=== PATIENT | male | born 1955 | race Caucasian/White ===

== ENCOUNTER 2017-01-09 15:00 | Outpatient (RCR) | payer BC, OTHER ==
[2016-11-13 14:19] VITALS: BP 117/73; PULSE 64; TEMP 98.3
[2016-11-22 16:01] VITALS: BP 108/72; PULSE 83; TEMP 98.5
[2016-11-29 16:11] VITALS: BP 110/58; PULSE 83; TEMP 97.9
[2016-12-06 15:52] VITALS: BP 121/72; PULSE 87; TEMP 97.9
[2016-12-13 16:21] VITALS: BP 106/61; PULSE 90; TEMP 98.1
[2016-12-20] VITALS (7 sets, daily range): BP systolic 108–152; BP diastolic 66–87; PULSE 70–77; TEMP 98.4
[2016-12-26 15:01] VITALS: BP 110/63; PULSE 88; TEMP 97.8
[2017-01-02 14:58] VITALS: BP 108/69; PULSE 72; TEMP 97.8
[~2017-01-09] VITALS: Ht 175.3 cm; Wt 84.0 kg
[~2017-01-09 15:00] MED LIST: ASPIRIN 81M81 MG/TA2 PO; AUGMENTIN 875 M1 TAB PO; BROVANA15 MCG/2 M IH; CALAN80 MG PO; CRESTOR 10MG10 MG PO; DALIRESP500 MCG PO; GLASSIA IV; LEVOTHYROXINE0.05 MG PO; PULMICORT R1 MG/2 ML IH; SINGULAIR 110 MG/TAB PO; SYNTHROID0.112 MG/T PO; THEO-DUR 2200 MG/TAB PO; TOPAMAX 25MG25 M1 PO; TUDORZA IH; VENTOLIN0.09 MG IH; VERAPAMIL240 MG PO; ZOMIG5 MG PO
[2017-01-09 15:15] VITALS: BP 125/73; PULSE 80; TEMP 98.5
== END 2017-02-11 | disposition home or self-care (01) ==
LOC: EUO
DX: E88.01 Alpha-1-antitrypsin deficiency (principal); Z45.2 Encounter for adjustment and management of vascular access device
CPT/HCPCS: J0257; J1644

== ENCOUNTER 2017-04-17 15:30 | Outpatient (RCR) | payer BC | END 2017-06-07 16:01 | disposition home or self-care (01) | LOC: WSPT | DX: M75.81 Other shoulder lesions, right shoulder (principal) ==

== ENCOUNTER → 2017-12-30 | Outpatient (CLI) | payer BC | LOC: COL.RAD 12-25 09:30 | DX: D47.2 Monoclonal gammopathy (principal); M47.812 Spondylosis without myelopathy or radiculopathy, cervical region; M47.816 Spondylosis without myelopathy or radiculopathy, lumbar region ==

== ENCOUNTER → 2019-04-27 | Outpatient (CLI) | payer BC, MEDICARE | LOC: COL.RAD 12:59 | DX: Z13.6 Encounter for screening for cardiovascular disorders (principal); F17.219 Nicotine dependence, cigarettes, with unspecified nicotine-induced disorders ==

== ENCOUNTER 2019-05-08 11:26 | Observation (INO) | payer MEDICARE, BC ==
[~2019-05-08] VITALS: Ht 175.3 cm; Wt 78.6 kg
[2019-05-08 15:10] LABS: BASO # 0.2 (0.0-0.2); BASO % 0.6 % (0.0-2.0); GRAN # 22.8 (1.4-6.5); GRAN % 85.4 % (42.2-75.2); HEMATOCRIT 49.6 % (42.0-52.0); HEMOGLOBIN 16.3 g/dl (13.5-18.0); LYMPH # 1.3 (1.2-3.4); LYMPH % 4.7 % (20.0-51.0); MEAN CELL VOLUME 94 fl (80.0-100.0); MEAN CORPUSCULAR HEMOGLOBIN 31 pg (27.0-31.0); MEAN CORPUSCULAR HGB CONC 33 g/dl (33.0-37.0); MEAN PLATELET VOLUME 11.5 fl (7.4-10.4); MONO # 2.4 (0.1-0.6); MONO % 8.9 % (1.7-9.3); PLATELET COUNT 252 K/mm3 (130-400); RED BLOOD COUNT 5.29 M/mm3 (4.20-5.60); REDCELL DISTRIBUTION WIDTH-CV 13.6 % (11.5-14.5)
[2019-05-08 15:28] LABS: ALBUMIN 3.8 gm/dL (3.5-5.0); BILIRUBIN,TOTAL 0.6 mg/dL (0.0-1.0); C-REACTIVE PROTEIN 3.7 mg/dL (0.0-0.9); CREATININE, serum 0.69 (0.66-1.25); POTASSIUM 4.2 mmol/L (3.4-5.0); TOTAL PROTEIN 6.8 gm/dL (6.4-8.2)
[2019-05-08 15:30] LABS: COLLECTION METHOD CLEAN CATCH
[2019-05-08 15:46] LABS: AMORPHOUS CRYSTAL Present /uL; MUCOUS Present /lpf; PH 5 (5-8); SQUAMOUS EPITHELIAL 0-2 /hpf; URINE APPEARANCE Hazy; URINE BACTERIA None Seen /hpf; URINE BILIRUBIN Positive (NEGATIVE); URINE BLOOD Negative (NEGATIVE); URINE CALCIUM OXALATE CRYSTAL Present /hpf; URINE COLOR Amber; URINE GLUCOSE Negative (NEGATIVE); URINE KETONE 2+ (NEGATIVE); URINE LEUKOCYTE ESTERASE Negative (NEGATIVE); URINE NITRATE Negative (NEGATIVE); URINE PROTEIN(semi-quant) 1+ (NEGATIVE); URINE UROBILINOGEN >=4.0 mg/dL (NEGATIVE)
[2019-05-08] MEDS ORDERED: MOBIC15 MG PO (21:03)
[2019-05-08] MEDS ORDERED: PROAIR HFA0.09 MG/AC IH (21:09)
[2019-05-08] MEDS ORDERED: SPIRIVA RE2.5 MCG/Ac IH (21:10)
[2019-05-08] MEDS ORDERED: LIORESAL 1010 MG/TAB PO (21:10)
[2019-05-08 21:30] VITALS: BP 123/72; PULSE 118; TEMP 100.1
[2019-05-08 23:30] VITALS: BP 113/67; PULSE 132; TEMP 100.7
[2019-05-08 23:46] VITALS: BP 100/61; PULSE 130; TEMP 100.7
[2019-05-09] VITALS (7 sets, daily range): BP systolic 92–115; BP diastolic 46–74; PULSE 108–146; TEMP 97.5–99.8
[2019-05-09] MEDS ORDERED: THEO-24400 MG PO (00:45)
--- NOTE | 2019-05-09 01:36 | NUR ---
Patient arrived to medical floor room 306 from ER at approximately 2054. Denied having pain and discomfort at that time. Alert and oriented x 4, and able to make needs known. A little sleepy, but easily awakened. Peripheral IV to right AC flushed. Site is without redness, warmth, swelling, and pain. LS CTA. On oxygen at 3 L/min via NC, which is baseline per patient. Reports some SOB and dyspnea, but "nothing unusual." Patient does have COPD. Denies SOB at rest. HRR. BSAx4. Denied abdominal pain and discomfort. Stool sample needed, but has not been able to have a bowel movement so far this shift. Patient temperature increased to 100.7, pulse 130s, and BP 100/61. Spoke with EXCELLENCE LEADER. EKG ordered, patient put on telemetry per orders, showing sinus tachycardia. Given APAP for fever around 0030, and Dilaudid for pain around 0115. Voices no questions, needs, or concerns at this time. Bolus NS is running per orders at this time, then will run at 150 ml/hr per orders. Resting in bed with eyes closed at this time. Call light is within reach.
[2019-05-09 02:12] LABS: TSH w REFLEX 1.49 uIU/mL (0.465-4.680)
[2019-05-09 03:03] LABS: THEOPHYLLINE 2.6 ug/mL (10.0-20.0)
--- NOTE | 2019-05-09 05:59 | NUR ---
Patient has been resting in bed with eyes closed most of the night. called and given update on patient during the night. Temp has decreased to 98.8. Denies having chills. Peripheral IV to right AC patent. NS running at 150 ml/hr. Site is without redness, warmth, swelling, and pain. Continues to wear oxygen at 3 L/min via NC. Denies having any worsening SOB or dyspnea compared to baseline for patient. Continues on clear liquid diet. Reports pain to abdomen is currently at a 2. Denies wanting any PRN pain medication at this time. Encouraged to let staff know if he wants any pain medication, and voiced understanding. Denies having any nausea. No vomiting or diarrhea since arriving to medical floor. Stool sample still needed. Voices no questions, needs, or concerns at this time. Resting in bed with call light within reach.
[2019-05-09 07:17] LABS: HEMATOCRIT 46.2 % (42.0-52.0); HEMOGLOBIN 14.9 g/dl (13.5-18.0); MEAN CELL VOLUME 95 fl (80.0-100.0); MEAN CORPUSCULAR HEMOGLOBIN 31 pg (27.0-31.0); MEAN CORPUSCULAR HGB CONC 32 g/dl (33.0-37.0); MEAN PLATELET VOLUME 12.2 fl (7.4-10.4); PLATELET COUNT 214 K/mm3 (130-400); RED BLOOD COUNT 4.87 M/mm3 (4.20-5.60); REDCELL DISTRIBUTION WIDTH-CV 13.8 % (11.5-14.5)
[2019-05-09 07:19] LABS: CALCIUM 7.3 mg/dL (8.4-10.2); CREATININE, serum 0.8 (0.66-1.25); POTASSIUM 4.4 mmol/L (3.4-5.0)
--- NOTE | 2019-05-09 07:25 | NUR ---
Report given to day shift nurse.
--- NOTE | 2019-05-09 11:42 | NUR ---
Plan: Patient plans to return home with Rukhsana Owen as care support . Assess: SW met with patient in room to discuss DC plan. Patient reports that [place] of town. Patient indicated that he uses 02 cc and a nebulizer. Patient reports that he is okay to drive and has no concerns with daily living. Patient shares that he does not have a DPOA but is interested in setting one up. SW gave patient DPOA form and explained, patient indicated he will fill out late with present. Patient reports PCp as Dr. Murali Ornelas and uses [facility] for RX. No additional concerns identified. Action: SW verbalized resources and will check back for DPOA PPW and witness.
[2019-05-09 11:51] LABS: BAND 56 % (0-10); LYMPHOCYTE 19 % (20.0-51.0); METAMYELOCYTE 3 % (0-0); NEUTROPHILS 2 % (42.0-75.2); PLATELET ESTIMATE NORMAL (NORMAL)
--- NOTE | 2019-05-09 16:30 | NUR ---
PT CONTINUES TO HAVE LOOSE STOOLS, PT ASKED THIS NURES ABOUT GETTING ANYTHING TO SLOW IT DOWN SUCH IMMODIUM. THIS NURSE CALLED DR. CHEUNG, DR. CHEUNG STATED THAT HE DIDNT WANT TO HAVE PT STOP UP HIS BOWELS AND THAT LONG HE CONTINUES TO HAVE A LOOSE STOOLS HES AT LEAST POOPING OUT THE INFECTION. VERBALIZED THAT MAYBE LATER IN THE EVENING HE COULD POSSIBLY GET AN IMMODIUM JUST TO SLOW THE BM IF HE CONTINUES TO GO.
--- NOTE | 2019-05-09 20:15 | NUR ---
Patient assessed at this time. Denies having any pain or discomfort. Denies having any nausea, vomiting, or upset stomach. Reports he continues to have diarrhea. NS running at 100 ml/hr to peripheral IV to right AC. Site is without redness, warmth, swelling, and pain. Oxygen on at 3 L/min via NC. Denies having SOB and dyspnea. Heart with regular rhythm, tachycardia 110s-120s. Denies having chest pain, discomfort, palpitations. BS hyperactive x 4. Abdomen round, soft, and non-tender. No edema. Denies having any questions, needs, or concerns. Resting in bed with call light within reach.
--- NOTE | 2019-05-09 22:44 | NUR ---
Telemetry called and notified this nurse that patient's HR was above 130. When going to check on patient, patient was in the bathroom having a bowel movement. After patient returned to bed, patient's HR returned to 110s-120s, but does increase to 130 during exertion. Denies having chest pain and discomfort. Denies having SOB and dyspnea. Voices no questions, needs, or concerns. Resting in bed with eyes closed at this time. Call light is within reach.
--- NOTE | 2019-05-09 23:35 | NUR ---
HR increased to mid 140s when going to the bathroom. BP 92/46. Called to CONCRETE WORKER. Receiving 1 L NS bolus at this time. STAT labs for BMP and Mag were ordered. Patient continues to deny pain and discomfort. Is reporting some SOB and dyspnea related to having to go the the bathroom frequently. HR currently 127. Voices no questions, needs, or concerns at this time. Laying in bed with call light within reach.
[2019-05-10 00:13] LABS: CALCIUM 7.1 mg/dL (8.4-10.2); CREATININE, serum 1.15 (0.66-1.25); MAGNESIUM 2.3 mg/dL (1.6-2.3); POTASSIUM 4.2 mmol/L (3.4-5.0)
[2019-05-10 00:25] VITALS: BP 96/61; PULSE 128
--- NOTE | 2019-05-10 00:30 | NUR ---
BP at this time 96/61, pulse 128. Finished 1 L NS bolus. Lab results back. Called and spoke with CAKE PRESS OPERATOR HELPER. No new orders at this time. Requested to be notified if HR continues to increase in the 140s with frequent loose stools. Patient denies having any questions, needs, or concerns at this time.
[2019-05-10 03:03] VITALS: BP 109/60; PULSE 118; TEMP 100.9
[2019-05-10 06:05] VITALS: BP 94/52; PULSE 124; TEMP 98.2
[2019-05-10 06:27] LABS: HEMOGLOBIN 13.8 g/dl (13.5-18.0); MEAN CELL VOLUME 93 fl (80.0-100.0); MEAN CORPUSCULAR HEMOGLOBIN 31 pg (27.0-31.0); MEAN CORPUSCULAR HGB CONC 33 g/dl (33.0-37.0); MEAN PLATELET VOLUME 12.3 fl (7.4-10.4); PLATELET COUNT 162 K/mm3 (130-400); REDCELL DISTRIBUTION WIDTH-CV 13.8 % (11.5-14.5)
[2019-05-10 06:37] LABS: ALBUMIN 2.5 gm/dL (3.5-5.0); BILIRUBIN,TOTAL 0.3 mg/dL (0.0-1.0); CALCIUM 6.8 mg/dL (8.4-10.2); CREATININE, serum 0.97 (0.66-1.25); MAGNESIUM 2.5 mg/dL (1.6-2.3); POTASSIUM 3.7 mmol/L (3.4-5.0); TOTAL PROTEIN 5.1 gm/dL (6.4-8.2)
--- NOTE | 2019-05-10 07:40 | NUR ---
Patient had a fall in room at approximately 0605. Stated that he was trying to go to the bathroom when he tripped on oxygen tubing and IV tubing and fell. Got self back up and put self in bed before calling for assistance. Upon entering room, patient had blood on face and hands. Cleansed. Called and notified JACK MACHINE OPERATOR about fall and laceration to right forehead, measuring approximately [id number] (LWD). Skin tear to left third digit measuring 1cmX0.8cm (LW). Gauze and wrap placed on finger after cleansed. Ice held to forehead. VS: 98.2 20 94/52 93% on oxygen at 3 L/min via NC. Denied having pain and discomfort. Alert and oriented x 4. Able to follow commands. Pupils round, and react equally and immediately to light. Hand maintenance groundman strong and equal bilaterally. Assisted patient to bedside commode, and assisted patient with pericare afterwards. Patient taken down for head CT, then taken to ER to have physician place sutures. Patient back in room at this time. Notified patient's of incident.
--- NOTE | 2019-05-10 08:00 | NUR ---
PT HAD NO C/O PAIN THIS AM. PT CALLING FOR HELP WITH AMBULATION, BED ALARM ON. IV FLUIDS INFUSING WITHOUT ISSUE.
--- NOTE | 2019-05-10 10:30 | NUR ---
PT IV LEAKING, THIS NURES ATTEMPTED X2 UNABLE TO OBTIAN SITE, HUAN RN WAS ABLE TO GET SITE ON RT HAND. IV ABX FINISHING INFUSING. PT TOLERATED IV REPLACEMENT WELL. NO ISSUES OR CONSERNS.
[2019-05-10 10:44] LABS: BAND 56 % (0-10); LYMPHOCYTE 36 % (20.0-51.0); NEUTROPHILS 5 % (42.0-75.2); PLATELET ESTIMATE NORMAL (NORMAL)
[2019-05-10 11:13] VITALS: BP 122/76; PULSE 107; TEMP 98
--- NOTE | 2019-05-10 11:30 | NUR ---
PT REQUESTED TO ADVANCE DIET. PT HAS TOLERATED PO WELL WITHOUT N/V, ADVANCED ORDER TO GENERAL DIET.
--- NOTE | 2019-05-10 16:00 | NUR ---
PT HAD STATES HE STILL HAVING LOOSE STOOLS BUT NOT FREQUENT. ORDER FOR IMMODIUM, THIS NURSE ADMINISTERED MED. PT WAS ABLE TO TAKE A LONG NAP THIS AFTERNOON.
[2019-05-10 16:08] VITALS: BP 122/67; PULSE 103; TEMP 98.2
--- NOTE | 2019-05-10 20:40 | NUR ---
Shift assessment complete. Pt resting in bed, awake, a&o, cooperative c cares. Pt denies any pain or other c/o at this time. IV patent. O2 per NC. Tele in place. Pt denies needs at this time. Call light in reach, bed alarm on. Will continue to monitor.
[2019-05-11 00:38] VITALS: BP 126/67; PULSE 101; TEMP 98.4
--- NOTE | 2019-05-11 05:16 | NUR ---
Pt resting in bed, condition unchanged. Pt has rested well c very few needs this shift. Continues to deny pain or other c/o. Reports diarrhea has not completely resolved though only reports 2x loose BM this shift. Denies needs at this time. Call light in reach, bed alarm on.
[2019-05-11 05:31] VITALS: BP 114/63; PULSE 96; TEMP 98.4
[2019-05-11 07:23] VITALS: BP 114/66; PULSE 91; TEMP 98.1
[2019-05-11 08:14] LABS: HEMATOCRIT 37.4 % (42.0-52.0); HEMOGLOBIN 12.4 g/dl (13.5-18.0); MEAN CELL VOLUME 92 fl (80.0-100.0); MEAN CORPUSCULAR HEMOGLOBIN 31 pg (27.0-31.0); MEAN CORPUSCULAR HGB CONC 33 g/dl (33.0-37.0); MEAN PLATELET VOLUME 12.3 fl (7.4-10.4); PLATELET COUNT 167 K/mm3 (130-400); RED BLOOD COUNT 4.05 M/mm3 (4.20-5.60); REDCELL DISTRIBUTION WIDTH-CV 13.8 % (11.5-14.5)
[2019-05-11 08:26] LABS: CALCIUM 7.2 mg/dL (8.4-10.2); CREATININE, serum 0.73 (0.66-1.25); POTASSIUM 3.4 mmol/L (3.4-5.0)
[2019-05-11 09:02] LABS: BAND 18 % (0-10); EOSINOPHIL 2 % (0-4); LYMPHOCYTE 17 % (20.0-51.0); METAMYELOCYTE 2 % (0-0); NEUTROPHILS 50 % (42.0-75.2); PLATELET ESTIMATE NORMAL (NORMAL); TOXIC GRANULATION PRESENT
[2019-05-11] MEDS ORDERED: IMODIUM 2MG CAPS2 MG PO (09:22)
[2019-05-11] MEDS ORDERED: CALAN80 MG PO (09:22)
[2019-05-11] MEDS ORDERED: LEVAQUIN 750MG750 M1 PO (09:22)
[2019-05-11] MEDS ORDERED: FLAGYL500 MG PO (09:22)
--- NOTE | 2019-05-11 09:30 | NUR ---
patient assessment complete and charted. Patient A&O, cooperative with cares. Denies SOB, dizziness, N/V, chest pain, abdominal pain. Pt on 3L NC, per patient, his baseline. Pt states he has had some diarrhea last night and this morning. LH IV w/ NS @125 ml/hr running w/ no complications. Tele in place. Sutures to rt forehead/eyebrow intact, no redness, swelling. Per pt, he fell the other day d/t "tripping over O2 and IV tubing." Patient has not requested pain medication. Patient will discharge later this afternoon and will be started on PO abx. VSS, occasionally tachy, HR in 90s currently. No further questions or complaints. Call light within reach.
[2019-05-11 12:20] VITALS: BP 113/66; PULSE 100; TEMP 98.7
--- NOTE | 2019-05-11 15:24 | NUR ---
Discharge instructions discussed with patient, all questions answered. LH INT IV discontinued, catheter tip intact, no complications. No other needs. patient escorted out via wheelchair with at side. patient escorted home with no O2. This nurse asked patient if was bringing O2. Per patient, he "would make it home without any". VSS at this time.
== END 2019-05-11 15:50 | disposition home or self-care (01) ==
LOC: COL.ER 11:26 → MEDICAL 18:36
PROVIDERS: Emergency Medicine; Family Medicine; Nurse Practitioner; Nurse Practitioner Family; Physician Assistant; ADMIT Student in an Organized Health Care Education/Training Program
DX: K52.89 Other specified noninfective gastroenteritis and colitis (principal); A41.9 Sepsis, unspecified organism; E27.9 Disorder of adrenal gland, unspecified; J44.9 Chronic obstructive pulmonary disease, unspecified; E03.9 Hypothyroidism, unspecified; I10 Essential (primary) hypertension; S01.91XA Laceration without foreign body of unspecified part of head, initial encounter; E86.0 Dehydration; E78.5 Hyperlipidemia, unspecified; J96.11 Chronic respiratory failure with hypoxia; G44.009 Cluster headache syndrome, unspecified, not intractable; Z79.82 Long term (current) use of aspirin; F17.210 Nicotine dependence, cigarettes, uncomplicated; Z80.1 Family history of malignant neoplasm of trachea, bronchus and lung
CPT/HCPCS: 99222-AI; 99233-AI; G0378; J1170; J1650; J1956; J2270; J2405; J7030; Q9967

== ENCOUNTER 2021-01-25 06:55 | Inpatient (IN) | payer MEDICARE, BC ==
[~2021-01-25] VITALS: Ht 175.3 cm; Wt 64.5 kg
[~2021-01-25 06:55] MED LIST changes: +FLAGYL500 MG PO; +IMODIUM 2MG CAPS2 MG PO; +LEVAQUIN 750MG750 M1 PO; +LIORESAL 1010 MG/TAB PO; +MOBIC15 MG PO; +PROAIR HFA0.09 MG/AC IH; +SPIRIVA RE2.5 MCG/Ac IH
[2021-01-25 07:51] LABS: ARTERIAL BLD GAS TCO2 CT 54.9; ARTERIAL BLOOD GAS BASE EXCESS 17.3 (-2-2); ARTERIAL BLOOD GAS HCO3 50.7 meq/L (22-26); ARTERIAL BLOOD GAS PO2 184.3 mmHg (80-100); ARTERIAL BLOOD GAS pH 7.18 (7.35-7.45)
[2021-01-25 07:55] LABS: BASO # 0.1 (0.0-0.2); EOS % 0.2 % (0-4.0); GRAN # 5.9 (1.4-6.5); GRAN % 71.1 % (42.2-75.2); HEMATOCRIT 40.9 % (42.0-52.0); HEMOGLOBIN 11.1 g/dl (13.5-18.0); LYMPH # 1.5 (1.2-3.4); LYMPH % 17.8 % (20.0-51.0); MEAN CELL VOLUME 95 fl (80.0-100.0); MEAN CORPUSCULAR HEMOGLOBIN 26 pg (27.0-31.0); MEAN CORPUSCULAR HGB CONC 27 g/dl (33.0-37.0); MEAN PLATELET VOLUME 12.5 fl (7.4-10.4); MONO # 0.8 (0.1-0.6); MONO % 9.7 % (1.7-9.3); PLATELET COUNT 260 K/mm3 (130-400); RED BLOOD COUNT 4.31 M/mm3 (4.20-5.60); REDCELL DISTRIBUTION WIDTH-CV 23.3 % (11.5-14.5)
[2021-01-25 08:01] LABS: PROTHROMBIN TIME 11.7 SECONDS (9.7-12.8)
[2021-01-25 08:02] LABS: ALBUMIN 3.4 gm/dL (3.5-5.0); BILIRUBIN,TOTAL 0.3 mg/dL (0.0-1.0); CALCIUM 8.1 mg/dL (8.4-10.2); CREATININE, serum 0.65 (0.66-1.25); POTASSIUM 4.4 mmol/L (3.4-5.0); TOTAL PROTEIN 6.2 gm/dL (6.4-8.2)
[2021-01-25 09:05] LABS: ARTERIAL BLD GAS O2 SATURATION 95.7 % (92-100); ARTERIAL BLD GAS TCO2 CT 43.1; ARTERIAL BLOOD GAS BASE EXCESS 13.4 (-2-2); ARTERIAL BLOOD GAS PCO2 69.6 mmHg (35-45); ARTERIAL BLOOD GAS PO2 63.2 mmHg (80-100); ARTERIAL BLOOD GAS pH 7.39 (7.35-7.45)
[2021-01-25] MEDS ORDERED: PROVENTIL0.09 MG/A1 IH (10:02)
[2021-01-25] MEDS ORDERED: MOBIC 7.5MG7.5 MG PO (10:04)
[2021-01-25] MEDS ORDERED: THEO-24400 MG PO (10:06)
[2021-01-25] MEDS ORDERED: PULMICORT R1 MG/2 ML IH (14:44)
[2021-01-25] MEDS ORDERED: YUPELRI175 MCG/3 IH (14:45)
[2021-01-25] MEDS ORDERED: ASPIRIN 81M81 MG/TA2 PO (14:46)
[2021-01-25] MEDS ORDERED: MOBIC15 MG PO (14:49)
[2021-01-25] MEDS ORDERED: SINGULAIR 110 MG/TAB PO (14:50)
[2021-01-25] MEDS ORDERED: CRESTOR 10MG10 MG PO (14:51)
[2021-01-25] MEDS ORDERED: CALAN80 MG PO (14:53)
[2021-01-25] MEDS ORDERED: BENADRYL25 M2 PO (14:58)
[2021-01-25] MEDS ORDERED: MUCINEX 60600 MG/TA1 PO (14:58)
[2021-01-25] MEDS ORDERED: FERROUS SU325 MG/TAB PO (14:59)
[2021-01-25 16:32] VITALS: BP 134/68; PULSE 68; TEMP 100.1
--- NOTE | 2021-01-25 17:29 | NUR ---
Pt unable to maintain O2 sat >85% with highflow cannula. Requesting bipap, bipap replaced. IVF restarted.
--- NOTE | 2021-01-25 18:31 | NUR ---
Pt rested well after arrival to floor. Reports SOB, feels better on bipap but intermittently wears oxymask at 5L O2. Denies any pain. DATA MODELING SPECIALIST reports patient had a very dark almost black thick BM. Pt denies any N/V. IVF infusing to RFA IV. No needs at this time.
--- NOTE | 2021-01-25 19:02 | NUR ---
Received report from Doris. Patient done eating his dinner and wants to switch back to bipap. With IV infusing NS at 75ml/hr.
[2021-01-25 19:05] VITALS: BP 116/66; PULSE 99; TEMP 97.6
[2021-01-25 22:58] VITALS: BP 120/66; PULSE 79; TEMP 98.1
--- NOTE | 2021-01-26 00:30 | NUR ---
Patient's IV on the right forearm infiltrated. Applied warm compress on the site and removed the IV. Tequila AGUILERA, inserted IV on left forearm, G22.
[2021-01-26 04:07] VITALS: BP 119/65; PULSE 66; TEMP 98
--- NOTE | 2021-01-26 06:21 | NUR ---
Patient has been using his bipap the whole night. Shifted him to nasal cannula this morning at 5lpm. Patient refused the oxymask and wants cannula instead. He has been using urinal at the bedside. He denies pain.
[2021-01-26 06:53] LABS: MEAN CELL VOLUME 92 fl (80.0-100.0); MEAN CORPUSCULAR HGB CONC 28 g/dl (33.0-37.0); MEAN PLATELET VOLUME 13.5 fl (7.4-10.4); PLATELET COUNT 209 K/mm3 (130-400); RED BLOOD COUNT 3.74 M/mm3 (4.20-5.60); REDCELL DISTRIBUTION WIDTH-CV 24.2 % (11.5-14.5)
[2021-01-26 06:58] LABS: HEMATOCRIT 34.4 % (42.0-52.0); HEMOGLOBIN 9.6 g/dl (13.5-18.0); MEAN CORPUSCULAR HEMOGLOBIN 26 pg (27.0-31.0)
[2021-01-26 07:13] LABS: CALCIUM 8.1 mg/dL (8.4-10.2); CREATININE, serum 0.63 (0.66-1.25)
[2021-01-26 09:39] VITALS: BP 107/57; PULSE 86; TEMP 98.9
[2021-01-26 11:01] LABS: ARTERIAL BLOOD GAS pH 7.38 (7.35-7.45)
[2021-01-26 11:02] LABS: ARTERIAL BLD GAS O2 SATURATION 96.1 % (92-100); ARTERIAL BLD GAS TCO2 CT 36; ARTERIAL BLOOD GAS BASE EXCESS 7.4 (-2-2); ARTERIAL BLOOD GAS HCO3 34.2 meq/L (22-26); ARTERIAL BLOOD GAS PCO2 59.5 mmHg (35-45); ARTERIAL BLOOD GAS PO2 84.5 mmHg (80-100)
--- NOTE | 2021-01-26 11:14 | NUR ---
CHRIS met with the patient to discuss discharge plan. The patient lives in [place] with his , Rukhsana (ph#[phone]). He reports independence with ADLs and has a walker and home oxygen from [facility]. The patient's PCP is Dr. Murali Ornelas and he receives his medications from [facility]. He reports no difficulties obtaining his meds. The patient does not have a DPOA-HC and he was not interested in completing one at this time. The patient plans to return home with his upon discharge. Dr. Cobb is recommending that the patient will need a trilogy when he returns home. CHRIS discussed this with the patient. The patient was aware and he would like to proceed with getting the trilogy from [facility]. CHRIS contacted and faxed the patient's records to [facility]. Awaiting approval for trilogy. CHRIS attempted to contact and update the patient's . CHRIS left her a voicemail.
--- NOTE | 2021-01-26 12:15 | NUR ---
Pt doing well. Continues to use O2 via NC. Minimal needs, call light within reach, will continue to monitor
[2021-01-26 12:41] VITALS: BP 110/55; PULSE 83; TEMP 98.2
--- NOTE | 2021-01-26 14:06 | NUR ---
Primary nurse was assisted with [id number] patient care by [facility] student Irena De Paz and [employer] instructor Lois Lin MSN, RN.
[2021-01-26 16:25] VITALS: BP 113/54; PULSE 83; TEMP 97.5
--- NOTE | 2021-01-26 17:12 | NUR ---
Pt has continued to do well. Has been using NC throughout the day for O2 and has done well with it. No complaints of pain, no needs verbalized, call light within reach
[2021-01-26 19:38] VITALS: BP 132/61; PULSE 85; TEMP 98.1
--- NOTE | 2021-01-26 20:30 | NUR ---
Initial shift assessment done- denies pain, o2 at 5L/nc at this time, does wear Bipap at night, Tele on, IV fluids of NS at 75cc/hr-- given enlive vanilla supplement for snack- no requests.
[2021-01-26 23:19] VITALS: BP 123/67; PULSE 75; TEMP 97.6
[2021-01-27 03:12] VITALS: BP 130/70; PULSE 98; TEMP 97.7
--- NOTE | 2021-01-27 05:13 | NUR ---
Did sleep fairly well throughout the night- VSS, o2 sat 95% on 5L/nc at this time, requesting some coffee,, did wear the bipap until about 0400 this morning then went back to 5L nasal cannula per his request
[2021-01-27 05:19] LABS: ARTERIAL BLD GAS O2 SATURATION 90.3 % (92-100); ARTERIAL BLD GAS TCO2 CT 32.1; ARTERIAL BLOOD GAS BASE EXCESS 3.7 (-2-2); ARTERIAL BLOOD GAS HCO3 30.4 meq/L (22-26); ARTERIAL BLOOD GAS PCO2 56.3 mmHg (35-45); ARTERIAL BLOOD GAS PO2 60.9 mmHg (80-100); ARTERIAL BLOOD GAS pH 7.35 (7.35-7.45)
[2021-01-27 07:23] LABS: BASO % 0.1 % (0.0-2.0); GRAN # 6.2 (1.4-6.5); GRAN % 88.8 % (42.2-75.2); HEMATOCRIT 38.3 % (42.0-52.0); HEMOGLOBIN 10.4 g/dl (13.5-18.0); LYMPH # 0.5 (1.2-3.4); LYMPH % 7.5 % (20.0-51.0); MEAN CELL VOLUME 93 fl (80.0-100.0); MEAN CORPUSCULAR HEMOGLOBIN 25 pg (27.0-31.0); MEAN CORPUSCULAR HGB CONC 27 g/dl (33.0-37.0); MEAN PLATELET VOLUME 12.1 fl (7.4-10.4); MONO # 0.2 (0.1-0.6); PLATELET COUNT 220 K/mm3 (130-400); REDCELL DISTRIBUTION WIDTH-CV 24.1 % (11.5-14.5)
[2021-01-27 07:28] LABS: CALCIUM 8.2 mg/dL (8.4-10.2); CREATININE, serum 0.6 (0.66-1.25); POTASSIUM 4.6 mmol/L (3.4-5.0)
[2021-01-27 08:00] VITALS: BP 130/60; PULSE 91; TEMP 98.1
--- NOTE | 2021-01-27 08:58 | NUR ---
Pt assessment complete. Pt is sitting up in bed upon entry, he is A/O x4. His breathing currently is even and unlabored on 5L O2 via NC. Pt reports continued SOB, but improvement from admission. Humidification added to oxygen. No productive cough. Denies pain. No N/V. Pt states he will be with us through the weekend. No needs at this time. Student nurse will be caring for patient this AM.
--- NOTE | 2021-01-27 09:26 | NUR ---
Pt has labored, rapid breathing on exertion. Unlabored, normal respirations at rest.
--- NOTE | 2021-01-27 09:41 | NUR ---
The hospitalist requested a [facility] eval. CHRIS contacted and faxed a referral to Jose at [facility]. Awaiting screen.
--- NOTE | 2021-01-27 10:51 | NUR ---
PT USING BIPAP @ NOC 03/05; B/U RATE 10; FIO2 28% (2-3 LPM BLEED IN)
[2021-01-27 12:40] VITALS: BP 119/62; PULSE 80; TEMP 98.5
--- NOTE | 2021-01-27 13:48 | NUR ---
Primary nurse was assisted with [id number] patient care by [employer] [facility] student Elmira Vergara and [facility] instructor Lois Lin RN-.
--- NOTE | 2021-01-27 13:51 | NUR ---
Jose, at [facility], reports that they are able to accept the patient and that he hopes to have a bed available tomorrow. If not, possibly Saturday. CHRIS met with the patient to update. The patient is agreeable to going to [facility]. CHRIS attempted to contact and update the patient's , Rukhsana. SW left him a voicemail. The patient reports that his is at work right now. CHRIS updated the hospitalist.
[2021-01-27 16:39] VITALS: BP 139/73; PULSE 71; TEMP 98.3
--- NOTE | 2021-01-27 18:51 | NUR ---
Pt had uneventful day. Rested well, O2 unchanged. Continues on 5L O2 via NC. Pt and asking about referral to [facility], explained to best of ability. Social work notified and spoke with patient and . Pt has no needs at this time. Call light within reach.
--- NOTE | 2021-01-27 20:00 | NUR ---
Assessment complete. Patient currently wears 5 liters 02 and states his personal pulse ox reader is reading 86%; Oxygen is temporarily titrated to 8 liters and he pops up to 92%. RT is notified and patient is placed on BIPAP. PAtient complaints of headache and PRN Tylenol is adminstered. Lung sounds are clear over diminished. No edema is noted. Pulses 2/1. Call light in reach, will continue to monitor.
[2021-01-27 20:55] VITALS: BP 111/63; PULSE 68; TEMP 98.2
[2021-01-28] VITALS (7 sets, daily range): BP systolic 113–127; BP diastolic 64–73; PULSE 61–77; TEMP 97.8–98.3
--- NOTE | 2021-01-28 09:41 | NUR ---
Pt assessment complete. Pt sitting up in bed upon entry, he is A/O x4. His breathing is even and unlabored 5L O2 via NC. Pt states his SOB has improved at both rest and on exertion. Denies any pain. No N/V. No further needs at this time. Call light within reach.
--- NOTE | 2021-01-28 11:38 | NUR ---
SW was asked by Alyse Clark to follow up with [facility] on approval for trilogy. CHRIS was able to verify DME approval. CHRIS was asked by Alyse to update patient on this. SW updated patient as requested.
--- NOTE | 2021-01-28 18:17 | NUR ---
Pt had uneventful day. Alyse stopped by to address patient and his wifes concerns and questions about trilogy and [facility]. Remained on 5L O2. Has no concerns at this time. Call light within reach.
[2021-01-29 03:39] VITALS: BP 119/71; PULSE 68; TEMP 97.6
[2021-01-29 06:38] LABS: GRAN # 7.7 (1.4-6.5); GRAN % 89.5 % (42.2-75.2); HEMOGLOBIN 10.2 g/dl (13.5-18.0); LYMPH # 0.6 (1.2-3.4); LYMPH % 6.4 % (20.0-51.0); MEAN CELL VOLUME 93 fl (80.0-100.0); MEAN CORPUSCULAR HEMOGLOBIN 26 pg (27.0-31.0); MEAN CORPUSCULAR HGB CONC 28 g/dl (33.0-37.0); MONO # 0.3 (0.1-0.6); MONO % 3.8 % (1.7-9.3); PLATELET COUNT 213 K/mm3 (130-400); RED BLOOD COUNT 3.93 M/mm3 (4.20-5.60); REDCELL DISTRIBUTION WIDTH-CV 23.2 % (11.5-14.5)
[2021-01-29 06:47] LABS: HEMATOCRIT 36.6 % (42.0-52.0)
[2021-01-29 06:50] LABS: CALCIUM 8.1 mg/dL (8.4-10.2); CREATININE, serum 0.62 (0.66-1.25); POTASSIUM 4.5 mmol/L (3.4-5.0)
[2021-01-29 08:39] VITALS: BP 117/65; PULSE 80; TEMP 98.5
--- NOTE | 2021-01-29 09:00 | NUR ---
Pt has a student nurse assisting in cares today. Pt is sitting up in bed upon entry, he is A/O x4. His breathing is unchanged from yesterday. Remains on 5L O2 via NC. Pt reports he got SOB with exertion. Wore Bipap most of the night per nascar racer. Pt denies any pain. No N/V present. Appetite good. Encouraged patient to get up out of bed into chair for a while today. Call light within reach.
[2021-01-29 12:24] VITALS: BP 129/68; PULSE 83; TEMP 97.8
[2021-01-29 14:52] VITALS: BP 126/67; PULSE 78; TEMP 98.4
--- NOTE | 2021-01-29 15:02 | NUR ---
Performed a focused assessment on pt. in the morning, he stated that he was not in pain. Breathing has gotten better with oxygen on 5ml nasal canula. Assisited pt. with bathing (bed bath), and new linen, Administered medications. Pt. remains in bed with call light.
--- NOTE | 2021-01-29 15:09 | NUR ---
Medications given with the supervision of instructor and nurse.
--- NOTE | 2021-01-29 17:08 | NUR ---
Report given to ALE Nix. Pt remains on 5L O2 via NC. Pt appears to be more dyspneic today. Occasionally is denying breathing treatments. Pt's L FA swollen, IV in that arm, but flushes without complications and does not appear to be infiltrated. Coban taken off arm to help, arm elevated on 2 Pillows. No further needs, call light within reach.
--- NOTE | 2021-01-29 18:40 | NUR ---
New IV site offered to pt d/t swelling superior to left forearm IV site. Pt refusing new IV site at this time d/t previous experience of being difficult IV start and pt does not want to have "two sore arms." Situation reviewed with oncoming manufacturing shift supervisor nurse with report. No further needs reported. Call light in reach.
--- NOTE | 2021-01-29 19:45 | NUR ---
Initial shift assessment done- denies pain, SOB with any exertion,,will call when needs to getup, using urinal during the night. o2 at 5L/nc at this time sats 91-93%, will go on Bipap for the night. Tele on, requesting an ice cream for his snack tonight, no other requests.
[2021-01-29 20:30] VITALS: BP 127/61; PULSE 83; TEMP 97.6
[2021-01-30] VITALS (7 sets, daily range): BP systolic 116–132; BP diastolic 61–69; PULSE 71–82; TEMP 97.6–99.3
--- NOTE | 2021-01-30 03:35 | NUR ---
PT WORE BIPAP FOR APPROXIMATELY 5.5 HOURS THIS SHIFT.
--- NOTE | 2021-01-30 05:43 | NUR ---
Quiet night-- did wear Bipap for about 5 hours during the night-- back on o2 at 5L/nc, sats 92-95%, no requests, Tele on, VSS
--- NOTE | 2021-01-30 10:24 | NUR ---
NO C/O PAIN; PT HAS NOTICABLE TREMOR AND STATES THIS IS ALL THE TIME. EDEMA NOTED IN DIONNA FROM MID-FOREARM TO PAST ELBOW, ELEVATED. PT ALSO HAS EDEMA AT R ELBOW, ELEVATED.
--- NOTE | 2021-01-30 12:13 | NUR ---
First visit from the stopper maker helper. No needs right now.
--- NOTE | 2021-01-30 14:45 | NUR ---
Audio Production Engineer spoke with Migdalia at [facility] and was advised they do not have a bed available today. Migdalia is unsure what their bed availability is this week but advised they meet every morning at 0830 to discuss discharges/admits. CHRIS faxed clinical updates to Migdalia at [facility]. CHRIS also attempted to contact patient's and left a message.
--- NOTE | 2021-01-30 17:13 | NUR ---
PATIENT ALERT AND ENGAGED. S.O. AT BEDSIDE. PATIENT IS AWARE HE IS WAITING FOR REHAB BED FOR DC. NO C/O PAIN OR ANY NEEDS VOICED AT THIS TIME.
--- NOTE | 2021-01-30 20:00 | NUR ---
Assessment complete. Patient is resting in bed and states he feels slightly SOA after his breathing treatment; he is satting 87%. RT is notified and places patient on BIPAP, which brings saturation to 93%. Lung sounds are diminished, HR normal/regular, no edema or pain present. No new concerns from previous nights. Will continue to monitor.
[2021-01-31 04:23] VITALS: BP 136/61; PULSE 79; TEMP 97.6
[2021-01-31 07:23] VITALS: BP 133/67; PULSE 86; TEMP 97.6
--- NOTE | 2021-01-31 10:09 | NUR ---
Pt assessment complete. Pt is sitting up in bed upon entry, he is A/O x4. His breathing is currently even and unlabored on 5L O2 via NC. Pt reports he is feeling well today. Did get a long breathing treatment followed by ambulation with PT "which took it out of him". IV to LFA moved to R hand, d/t increased swelling and translucency of skin to LUE. Pt states he gets up a few times a day. No pain at this time. Denies futher needs. Call light within reach.
[2021-01-31 11:30] VITALS: BP 121/69; PULSE 74; TEMP 98.2
[2021-01-31 15:49] VITALS: BP 118/64; PULSE 77; TEMP 98; TEMP 98.6
--- NOTE | 2021-01-31 16:40 | NUR ---
City Secretary contacted Migdalia at [facility] who advised they would not have a bed today for patient. SW met with patient and patient's , Rukhsana to provide update.
--- NOTE | 2021-01-31 18:21 | NUR ---
Pt had uneventful day. Up a few times to the restroom, SOB unchanged. New IV started to R hand. No needs at this time. Call light within reach.
[2021-01-31 19:27] VITALS: BP 120/60; PULSE 79; TEMP 98.2
--- NOTE | 2021-01-31 20:00 | NUR ---
Assessment complete. Pt currently satting 92% on 5 liters 02 with no complaints of SOA. He has no complaints of pain. His upper extremities appear to be retaining fluid and are shiny but this is not a new issue for him. No new concerns from previous evenings. Will continue to monitor.
[2021-02-01 00:25] VITALS: BP 109/58; PULSE 67; TEMP 97.5
[2021-02-01 04:34] VITALS: BP 111/75; PULSE 71; TEMP 97.7
--- NOTE | 2021-02-01 07:00 | NUR ---
Report received from ALE Perez. PT in bed resting with 02 at 5L, resting well, denies needs, will continue to monitor.
[2021-02-01 07:10] LABS: HEMATOCRIT 37.4 % (42.0-52.0); HEMOGLOBIN 10.8 g/dl (13.5-18.0); MEAN CELL VOLUME 89 fl (80.0-100.0); MEAN CORPUSCULAR HEMOGLOBIN 26 pg (27.0-31.0); MEAN CORPUSCULAR HGB CONC 29 g/dl (33.0-37.0); MEAN PLATELET VOLUME 13.2 fl (7.4-10.4); PLATELET COUNT 177 K/mm3 (130-400); REDCELL DISTRIBUTION WIDTH-CV 22.9 % (11.5-14.5)
[2021-02-01 07:22] LABS: CALCIUM 7.8 mg/dL (8.4-10.2); CREATININE, serum 0.59 (0.66-1.25); POTASSIUM 4.1 mmol/L (3.4-5.0)
[2021-02-01 08:07] VITALS: BP 127/67; PULSE 92; TEMP 98.9
--- NOTE | 2021-02-01 10:00 | NUR ---
Assessment charted. Pt discussed feeling very anxious when in the bathroom waiting for SECURITIES COUNSELOR to help return to bed, discussed need to find ways to keep self calm and concentrate on deep breathing.
[2021-02-01 12:08] VITALS: BP 132/61; PULSE 96; TEMP 98.1
[2021-02-01 16:04] VITALS: BP 131/68; PULSE 96; TEMP 97.9
--- NOTE | 2021-02-01 16:25 | NUR ---
Migdalia lamb [facility] advised there is no bed today and is is uncertain when they can take patient as they have several vent referrals being screened that will take priority. SW will follow up on alternative placement options.
--- NOTE | 2021-02-01 18:21 | NUR ---
Pt has done well over shift. Anticipating dishcarge to [facility] once bed is available. Dneies needs, will give bedside shift report to nightshiftn traci who will resume care.
[2021-02-01 20:29] VITALS: BP 141/63; PULSE 97; TEMP 97.9
[2021-02-02 00:07] VITALS: BP 114/66; PULSE 76; TEMP 98.2
--- NOTE | 2021-02-02 01:36 | NUR ---
Patient sitting up in bed and receiving breathing tx upon enter the room around 193. Patient A/Ox4. Patient denies pain or discomfort. Patient denies SOB or dyspnea at this time. Breathing even and unlabored. Patient currently on 5L via NC. All scheduled meds given per JAN. Call light within reach. Patient denies any needs at this time.
[2021-02-02 05:11] VITALS: BP 125/64; PULSE 87; TEMP 98.1
--- NOTE | 2021-02-02 06:32 | NUR ---
Patient rested well throughout the night. VS remains stable. No acute respiratory distress noted. Call light within reach. Will give report to day shift nurse.
[2021-02-02 07:18] VITALS: BP 131/71; PULSE 93; TEMP 98.3
--- NOTE | 2021-02-02 07:59 | NUR ---
PATIENT WORE BIPAP LASXT NOC. NOW ON 5 LPM SP02 97%.
[2021-02-02 11:22] VITALS: BP 122/66; PULSE 81; TEMP 98
[2021-02-02 15:13] VITALS: BP 128/65; PULSE 85; TEMP 98
--- NOTE | 2021-02-02 16:01 | NUR ---
Student Records Coordinator faxed clinical updates to [facility], still waiting on bed availability. CHRIS faxed referral to Sobia at [facility]. Sobia advised based on the clinical information received, she was not sure patient would meet criteria for stay at their facility. Sobia inquired about patient's trilogy recommendation. CHRIS will follow up.
--- NOTE | 2021-02-02 19:45 | NUR ---
Assessment complete. Pt is AXO X3, denies having any pain at this time. He is sitting up in the bed watching TV at this time and he denies further needs. Call light within reach.
[2021-02-02 19:58] VITALS: BP 127/61; PULSE 87; TEMP 98.4
[2021-02-03 00:21] VITALS: BP 106/63; PULSE 72; TEMP 97.9
[2021-02-03 03:06] VITALS: BP 106/65; PULSE 67; TEMP 97.6
[2021-02-03 06:55] LABS: HEMATOCRIT 39.6 % (42.0-52.0); MEAN CELL VOLUME 92 fl (80.0-100.0); MEAN CORPUSCULAR HEMOGLOBIN 26 pg (27.0-31.0); MEAN CORPUSCULAR HGB CONC 28 g/dl (33.0-37.0); PLATELET COUNT 197 K/mm3 (130-400); RED BLOOD COUNT 4.32 M/mm3 (4.20-5.60)
[2021-02-03 07:02] LABS: CALCIUM 7.9 mg/dL (8.4-10.2); CREATININE, serum 0.56 (0.66-1.25); POTASSIUM 4.4 mmol/L (3.4-5.0)
[2021-02-03 07:23] LABS: ANISOCYTOSIS 3+; HYPOCHROMIA 3+; LYMPHOCYTE 2 % (20.0-51.0); NEUTROPHILS 95 % (42.0-75.2); PLATELET ESTIMATE NORMAL (NORMAL)
[2021-02-03 07:24] LABS: OVALOCYTES 1+; POIKILOCYTOSIS 1+
--- NOTE | 2021-02-03 08:00 | NUR ---
Shift asssessment complete. Sitting up in bed watching tv. Denies pain. Awaiting placement. Continuing to monitor.
[2021-02-03 08:07] VITALS: BP 137/61; PULSE 88; TEMP 98
[2021-02-03 11:57] VITALS: BP 133/70; PULSE 73; TEMP 98.1
--- NOTE | 2021-02-03 13:40 | NUR ---
Pt picked up by EMS at this time. Attempted to call report to [facility] at this time w/no answer.
--- NOTE | 2021-02-03 13:48 | NUR ---
Closing Coordinator was contacted by Min at [facility] who advised they can accept patient today as he currently does meet criteria. CHRIS met with patient who is agreeable to [facility]. CHRIS contacted [facility] to set transport time for 1330. CHRIS provided transport time to patient, ALE Gifford, Employee Benefits Director, and Hospitalist. Patient contacted his to provide transport time and she will come in to see him before he leaves. CHRIS placed completed EMS forms on patient's chart. CHRIS contacted Min to give transport time and to provide Bipap settings. CHRIS provided RN report # to ALE Gifford. Accepting Physician is Dr. Flor. CHRIS faxed discharge orders to Min at [facility] and also contacted Jose at [facility] to update on discharge.
--- NOTE | 2021-02-03 14:00 | NUR ---
Report given to nurse at [facility].
== END 2021-02-03 13:40 | DRG 193 ==
LOC: COL.ER 06:55 → MEDICAL 09:25
PROVIDERS: Family Medicine; Internal Medicine Pulmonary Disease; Physician Assistant; ADMIT Hospitalist
DX: J18.9 Pneumonia, unspecified organism (principal); J96.21 Acute and chronic respiratory failure with hypoxia; J96.22 Acute and chronic respiratory failure with hypercapnia; E87.3 Alkalosis; I10 Essential (primary) hypertension; E78.5 Hyperlipidemia, unspecified; E03.9 Hypothyroidism, unspecified; J43.9 Emphysema, unspecified; F17.210 Nicotine dependence, cigarettes, uncomplicated; R25.1 Tremor, unspecified; I27.20 Pulmonary hypertension, unspecified; E88.01 Alpha-1-antitrypsin deficiency; D50.9 Iron deficiency anemia, unspecified; G44.009 Cluster headache syndrome, unspecified, not intractable; Z20.822 Contact with and (suspected) exposure to COVID-19; Z99.81 Dependence on supplemental oxygen; Z79.82 Long term (current) use of aspirin
CPT/HCPCS: 99222-AI; 99231-AI; 99232-AI; 99233-AI; 99239; J0456; J0696; J1650; J2920; J2930; J7030; J7050; Q9967

== ENCOUNTER 2021-03-08 10:23 | Inpatient (IN) | payer MEDICARE, BC ==
[~2021-03-08] VITALS: Ht 175.3 cm; Wt 69.1 kg
[~2021-03-08 10:23] MED LIST changes: +BENADRYL25 M2 PO; +FERROUS SU325 MG/TAB PO; +MOBIC 7.5MG7.5 MG PO; +MUCINEX 60600 MG/TA1 PO; +PROVENTIL0.09 MG/A1 IH; +THEO-24400 MG PO; +YUPELRI175 MCG/3 IH
[2021-03-08 10:53] LABS: ARTERIAL BLD GAS O2 SATURATION 63.1 % (92-100); ARTERIAL BLD GAS TCO2 CT 30.8; ARTERIAL BLOOD GAS BASE EXCESS 2.9 (-2-2); ARTERIAL BLOOD GAS HCO3 29.2 meq/L (22-26); ARTERIAL BLOOD GAS PCO2 52.3 mmHg (35-45); ARTERIAL BLOOD GAS PO2 34.4 mmHg (80-100); ARTERIAL BLOOD GAS pH 7.37 (7.35-7.45)
[2021-03-08 11:00] LABS: HEMATOCRIT 39.8 % (42.0-52.0); HEMOGLOBIN 11.8 g/dl (13.5-18.0); MEAN CELL VOLUME 88 fl (80.0-100.0); MEAN CORPUSCULAR HEMOGLOBIN 26 pg (27.0-31.0); MEAN CORPUSCULAR HGB CONC 30 g/dl (33.0-37.0); MEAN PLATELET VOLUME 10.2 fl (7.4-10.4); PLATELET COUNT 356 K/mm3 (130-400); RED BLOOD COUNT 4.52 M/mm3 (4.20-5.60); REDCELL DISTRIBUTION WIDTH-CV 26.4 % (11.5-14.5)
[2021-03-08 11:09] LABS: ALANINE AMINOTRANSFERASE 32 U/L (4-49); ALBUMIN 3.2 gm/dL (3.5-5.0); ALKALINE PHOSPHATASE 104 U/L (50-136); ANION GAP 3 mmol/L (7-16); AST,SGOT 26 U/L (15-37); BILIRUBIN,TOTAL 0.2 mg/dL (0.0-1.0); BLOOD UREA NITROGEN 27 mg/dL (9-20); CALCIUM 8.4 mg/dL (8.4-10.2); CARBON DIOXIDE 31 mmol/L (22-30); CHLORIDE 102 mmol/L (98-107); CREATININE, serum 0.45 (0.66-1.25); GLUCOSE 190 mg/dL (74-106); POTASSIUM 5.1 mmol/L (3.4-5.0); SODIUM 135 mmol/L (137-145); TOTAL PROTEIN 6.3 gm/dL (6.4-8.2)
[2021-03-08 11:20] LABS: TROPONIN-I < 0.012 ng/mL (0.000-0.035)
[2021-03-08 11:26] LABS: ANISOCYTOSIS 4+; HYPOCHROMIA 4+; LYMPHOCYTE 1 % (20.0-51.0); METAMYELOCYTE 1 % (0-0); MYELOCYTE 2 % (0-0); NEUTROPHILS 96 % (42.0-75.2); PLATELET ESTIMATE NORMAL (NORMAL)
--- NOTE | 2021-03-08 12:30 | NUR ---
arrived on unit per cart, assisted off cart and into bed, he is very dyspneic on exertion
--- NOTE | 2021-03-08 13:15 | NUR ---
resting in bed, full admission assessment completed, at bedside
[2021-03-08 13:56] VITALS: BP 117/68; PULSE 92; TEMP 97.5
--- NOTE | 2021-03-08 14:19 | NUR ---
to radiology per WC for CT scan
--- NOTE | 2021-03-08 14:22 | NUR ---
Vancomycin Initial Dosing Pharmacy Note Ordering provider: Sumaya Parmar DO Indication/duration: rul consolidation, 7 days Relevant comorbidities: [facility] LABS: SCr 0.45, CrCL~133, GFR 188 Recommendation: Will give Vancomycin 1.5 gm IV x1 loading dose, then Vancomycin 1 gm IV q8h. Pharmacy will continue to monitor and check a Vancomycin trough on 03/10/21. Loading dose: 1.5 grams Maintenance dose: 1 gram every 8 hours Trough goal: 15-20 ug/mL
--- NOTE | 2021-03-08 14:45 | NUR ---
bedside shift report given to ALE Hill
[2021-03-08 15:29] VITALS: BP 121/66; PULSE 96; TEMP 97.6
[2021-03-08 16:35] VITALS: PULSE 101
--- NOTE | 2021-03-08 17:22 | NUR ---
Patient sitting up in bed, at the bedside. A&Ox4 6L NC O2. Nursing staff assisted the patient back to bed from the bathroom and the patient was SOB. O2 94%. IV CDI, fluids infusing. Denies pain and discomfort. No further needs expressed from the patient. Call light within reach
--- NOTE | 2021-03-08 18:50 | NUR ---
Received report from Liz. Patient is awake in bed, at bedside. Provided pillows per request fo him to elevate his left arm with IV.
[2021-03-08 19:02] VITALS: BP 106/54; PULSE 98; TEMP 97.8
--- NOTE | 2021-03-08 20:00 | NUR ---
Assesment done. Patient ongoing breathing treatment. Joanna of RT informed him to call if he's ready for his Bipap set up. With ongoing IV on left wrist infusing NS at 125ml/hr. He denies pain. Urinal at bedside.
--- NOTE | 2021-03-08 21:06 | NUR ---
Joanna of RT informed me that she already set up the Trilogy of the patient, bleed in at 5L.
[2021-03-09] VITALS (7 sets, daily range): BP systolic 102–129; BP diastolic 57–77; PULSE 83–111; TEMP 97.4–98.1
--- NOTE | 2021-03-09 04:30 | NUR ---
Patient off his bipap. Hooked to O2 at 6lpm via NC. He states he was able to sleep well last night. He denies pain. Repositioned patient in bed.
--- NOTE | 2021-03-09 05:40 | NUR ---
Relayed to Michelle MORTGAGE LOAN PROCESSING CLERK via phone call regarding critical result of blood culture.
[2021-03-09 07:30] LABS: MEAN CELL VOLUME 90 fl (80.0-100.0); MEAN CORPUSCULAR HGB CONC 29 g/dl (33.0-37.0); MEAN PLATELET VOLUME 11.4 fl (7.4-10.4); PLATELET COUNT 314 K/mm3 (130-400); RED BLOOD COUNT 3.54 M/mm3 (4.20-5.60); REDCELL DISTRIBUTION WIDTH-CV 26.3 % (11.5-14.5)
[2021-03-09 07:44] LABS: CALCIUM 7.6 mg/dL (8.4-10.2); CREATININE, serum 0.51 (0.66-1.25); POTASSIUM 3.8 mmol/L (3.4-5.0)
[2021-03-09 07:45] LABS: HEMATOCRIT 31.7 % (42.0-52.0); HEMOGLOBIN 9.1 g/dl (13.5-18.0); MEAN CORPUSCULAR HEMOGLOBIN 26 pg (27.0-31.0)
[2021-03-09 08:16] LABS: ANISOCYTOSIS 4+; HYPOCHROMIA 4+; LYMPHOCYTE 3 % (20.0-51.0); METAMYELOCYTE 1 % (0-0); NEUTROPHILS 95 % (42.0-75.2); PLATELET ESTIMATE NORMAL (NORMAL)
[2021-03-09 08:17] LABS: OVALOCYTES 1+; POIKILOCYTOSIS 1+
--- NOTE | 2021-03-09 10:36 | NUR ---
CHRIS attended clinical rounds. The hospitalist informed the patient of the severity of his COPD and introduced the option of hospice. A palliative care consult was ordered. CHRIS staffed with palliative care nurse, Bree. The patient's plans to be up at the hospital this afternoon. Bree plans to meet with the patient and his then to discuss goals of care. CHRIS met with the patient to discuss discharge plan. The patient lives in [place] with his , Rukhsana (ph#[phone]), and youngest daughter, Oralia. He reports needing assistance with everything and that he has a walker, that is half broken and a wheelchair that was given to him. He has home oxygen and a trilogy from [facility]. He states that his and daughter assist him with his ADLs. The patient also has home health services from [facility]. CHRIS contacted and confirmed services from [facility]. They provide him with SN/PT/OT. CHRIS faxed updates to [facility]. The patient's PCP is Dr. Murali Ornelas and he receives his medications from [facility]. He reports no difficulties obtaining his meds. The patient does not have a DPOA-HC, but he was interested in obtaining a form and completing one while here. CHRIS provided the form. The patient would like to wait and fill it out when his gets here. The patient states that he would like to return home upon discharge. SW to continue to follow. *Discharge plan: Awaiting palliative care consult, PT/OT recs*
--- NOTE | 2021-03-09 13:52 | NUR ---
Primary nurse was assisted with [phone] patient care by [facility] student Ana Rodriguez and [facility] instructor Lois Lin MSN, RN.
--- NOTE | 2021-03-09 14:47 | NUR ---
Pt. sitting up in bed with at bedside, A/O x4. Pt. currently free of fever,chills, s/s. Pt.'s was curious and questioned the nurse of hospice care and palliative care. Nurse answered all relevant questions and informed pt. and that a staff member would be coming by to further discuss and educate the pt. and his family of plan of care. Call light within reach.
--- NOTE | 2021-03-09 16:25 | NUR ---
Met with patient and his , Rukhsana at bedside this afternoon. We talked about advanced directives and their importance. He has a blank DPOA-HC form at bedside. His daughter Adri was also on speaker phone and was very supportive of advanced directives. I encouraged them to talk about what was acceptable to Bert and what would not be acceptable as feeding tube, CPR, intubation, etc. I talked about setting limits for some interventions like the ventilator for a certain period of time vs ongoing. Pt and his are more open to completing forms now and will talk as family tonight and hopefully complete these by tomorrow--which is pt's goal. Placing emphasis on what is important to Bert was emphasized today. I will follow up tomorrow.
--- NOTE | 2021-03-09 17:04 | NUR ---
Pt. sitting in bed, A/O x4, pleasant and cooperative with at bedside . Pt. and completed a palliative care/Hospice meeting with Bree, 03/09/2021 1530. Pt. and would like to host a family meeting to review pt.'s plan of care, informed nurse that it would be three visitors total to discuss POC 03/10/2021. Nurse informed nurse of visting policy and would check with traffic maintenance supervisor if an exception to policy could be made. Right Of Way Agent, Flor, relayed to the nurse it was okay to have the three visitors 03/10/21 to discuss POC given the nature of meeting. Nurse relayed information to and pt., both were very pleased. Pt. expresses no additional needs at this time. Call light within reach.
[2021-03-10] VITALS (7 sets, daily range): BP systolic 108–137; BP diastolic 59–78; PULSE 85–122; TEMP 97.6–98.3
--- NOTE | 2021-03-10 05:18 | NUR ---
Awake, drinking some coffe, states he always is awake early, in good spirits, states slept well and feels better today. o2 sats 94% on 5.5L/nc. Was on his home trilogy all night while sleeping. Tele on. Continues with multiple antibiotics.
[2021-03-10 08:46] LABS: MEAN CELL VOLUME 88 fl (80.0-100.0); MEAN CORPUSCULAR HGB CONC 30 g/dl (33.0-37.0); MEAN PLATELET VOLUME 10.6 fl (7.4-10.4); PLATELET COUNT 280 K/mm3 (130-400); RED BLOOD COUNT 3.48 M/mm3 (4.20-5.60); REDCELL DISTRIBUTION WIDTH-CV 26.6 % (11.5-14.5)
[2021-03-10 08:51] LABS: HEMATOCRIT 30.5 % (42.0-52.0); HEMOGLOBIN 9.2 g/dl (13.5-18.0); MEAN CORPUSCULAR HEMOGLOBIN 26 pg (27.0-31.0)
[2021-03-10 08:55] LABS: CALCIUM 7.8 mg/dL (8.4-10.2); CREATININE, serum 0.53 (0.66-1.25); POTASSIUM 3.9 mmol/L (3.4-5.0)
--- NOTE | 2021-03-10 09:06 | NUR ---
Met with patient this am. he reports a good night sleep and feeling pretty good. Has brushed his teeth after eating breakfast and now is fatigued but plans to rest for a while. Family meeting is planned for today around 1430 or when and daughters can get here. Goal is to talk about his wishes and complete the DPOA-HC reflecting his wishes and so family can be clear what his wishes are. He is not wanting to give up on living but sees the importance of family being aware of his wishes and sharing this conversation. His daughter is a hospice nurse and is a great resource for this family.
[2021-03-10 09:19] LABS: BAND 7 % (0-10); LYMPHOCYTE 4 % (20.0-51.0); METAMYELOCYTE 1 % (0-0); NEUTROPHILS 85 % (42.0-75.2)
[2021-03-10 09:22] LABS: ANISOCYTOSIS 3+; HYPOCHROMIA 1+; PLATELET ESTIMATE NORMAL (NORMAL)
--- NOTE | 2021-03-10 09:45 | NUR ---
PT EDUCATED ON REASONING FOR CHANGING ROOMS. QUESTIONS ANSWERED. GATHERED PT BELONGINGS, PT TRANSFERRED TO NEW ROOM WITH PT BELONGINGS, PT FAMILY EDUCATED ON ROOM CHANGE.
--- NOTE | 2021-03-10 10:14 | NUR ---
Several visit attempts; Experimental Technician left prayer card offering God's blessings and information regarding the availability of spiritual care at our hospital.
--- NOTE | 2021-03-10 10:38 | NUR ---
PT REPORTING SOB AND SAYING "BETTER HURRY UP, IM GONNA PASS OUT". PT SATTING 91% ON HIS NASAL CANNULA, HR 128. PT HAVING LABORED BREATHING APPEARS VERY ANXIOUS. PT REQUESTING TRILOGY SO TRILOGY PLACED ON PT AND PT SATTING 96%. PT REPORTS FEELING MUCH BETTER BUT STILL HAVING HR IN 120'S, NO LONGER HAVING LABORED BREATHS.
--- NOTE | 2021-03-10 11:28 | NUR ---
NOTIFIED PROVIDER AND PA OF PT CONDITION, PHYSICIAN TO VISIT PT. AFTER VISIT MORPHINE ORDERED AND GIVEN. EKG ORDERED AND PERFORMED DAUGHTERS IN ROOM W/ PPE IN PLACE. SITUATION EXPLAINED TO DAUGHTERS, QUESTIONS ANSWERED AT THIS TIME. PT REPOSITIONED IN BED. ORAL MORPHINE GIVEN. CALLED PT TO UPDATE OF SITUATION, INFORMED STAFF SHE WOULD BE ON HER WAY FROM WORK SHORTLY.
--- NOTE | 2021-03-10 11:53 | NUR ---
Primary nurse was assisted with [phone] patient care by [facility] [employer] student Ana Rodriguez and [facility] instructor Lois Lin MSN, RN.
--- NOTE | 2021-03-10 14:40 | NUR ---
PT NOT AVAILABLE
--- NOTE | 2021-03-10 14:58 | NUR ---
Family meeting today with two daughters and Rukhsana, . Family discussed what Bert's wishes were--he is not ready to give up on living but is willing to complete a DPOA-HC and did discuss with and daughters that he would like to spend his days at home rather than in the hospital. Family did discuss having outside human resources support specialist coming to the home so Rukhsana wouldn't feel too overwhelmed. She is starting FMLA from her job on Saturday so she can spend more time with Bert and daughters are hoping to be more available to help as well. Again they did talk about code status and intubation at length. Pt stated he would not want to be intubated and family acknowledged.
--- NOTE | 2021-03-10 15:20 | NUR ---
Pt. sitting up in bed with two daughters and at bedside. Pt. is A/O x4, free of dizziness, fever, chills. Pt. does appear anxious. Nurse asked pt. if he was feeling anxious, patient responded "yes, a bit." and daughter informed nurse he was feeling emotional after palliative care consult. Pt. states he feels most comfortable with trilogy on and saturation monitor on. Nurse placed trilogy on pt.
--- NOTE | 2021-03-10 16:12 | NUR ---
The patient was moved to room 359 and is being tested for TB now. Awaiting results. SW staffed with palliative care nurse, Bree. Bree had a family meeting with the patient, his , and daughters. The patient completed a DPOA-HC and designated his and then his daughters as the alternates. The patient is not ready to give up on living. SW to continue to follow.
--- NOTE | 2021-03-10 18:39 | NUR ---
pt reporting less anxiety at this time, vitals stable, iv antibiotics disconnected, pt requesting breathing treatment so respiratory therapy was called.
--- NOTE | 2021-03-10 18:55 | NUR ---
Received report from Mello. Seen patient awake in bed, at bedside. Denies needs at this time.
--- NOTE | 2021-03-10 21:00 | NUR ---
Patient currently on O2 at 5lpm via NC. With finger pulse oximeter in placed. Patient not anxious anymore. PICC on right upper arm flushes well with backflow. He denies pain.
[2021-03-11 03:35] VITALS: BP 122/79; PULSE 92; TEMP 97.7
--- NOTE | 2021-03-11 06:20 | NUR ---
Patient switched back to nasal cannula on 5lpm. He was satting at 88%. He tried switching back again to [facility] and it went up to 93% and above. He said that his nose is clogged. He is using a [facility] saline nasal spray on his bedside. He tried to put the nasal cannula on his mouth to see if his SPO2 will go up and it was at high 90's. Was able to talk to his daughter and she said the patient could be anxious and needs Morphine. Informed her that they didn't order a Morphine and it was a now dose only yesterday but I can pass it on to day shift to ask for an order. Patient will have his breathing treatment this morning.
[2021-03-11 06:41] LABS: BASO # 0.1 (0.0-0.2); BASO % 0.3 % (0.0-2.0); GRAN # 21.5 (1.4-6.5); GRAN % 84.9 % (42.2-75.2); LYMPH # 1.9 (1.2-3.4); LYMPH % 7.4 % (20.0-51.0); MEAN CELL VOLUME 91 fl (80.0-100.0); MEAN CORPUSCULAR HGB CONC 29 g/dl (33.0-37.0); MEAN PLATELET VOLUME 11.4 fl (7.4-10.4); MONO # 0.8 (0.1-0.6); PLATELET COUNT 292 K/mm3 (130-400); RED BLOOD COUNT 3.56 M/mm3 (4.20-5.60); REDCELL DISTRIBUTION WIDTH-CV 26.6 % (11.5-14.5)
[2021-03-11 06:52] LABS: HEMATOCRIT 32.3 % (42.0-52.0); HEMOGLOBIN 9.3 g/dl (13.5-18.0); MEAN CORPUSCULAR HEMOGLOBIN 26 pg (27.0-31.0)
[2021-03-11 06:57] LABS: CALCIUM 8.1 mg/dL (8.4-10.2); CREATININE, serum 0.51 (0.66-1.25); POTASSIUM 4.3 mmol/L (3.4-5.0)
--- NOTE | 2021-03-11 07:13 | NUR ---
RECEIVING BREATHING TREATMENT AT THIS TIME.
[2021-03-11 09:24] VITALS: BP 145/77; PULSE 116; TEMP 97.4
--- NOTE | 2021-03-11 09:30 | NUR ---
PATIENT ASSESSMENT COMPLETED. HE IS ASSISTED TO THE BEDSIDE COMMODE. HE IS SHORT OF BREATH WITH ACTIVITY, I ALMOST FEEL LIKE HE IS ANXIOUS ABOUT DOING ACTIVITES FOR FEAR HE WILL BE SHORT OF BREATH. I ASSISTED HIM TO THE COMMODE AND BACK TO BED. WHEN BACK TO BED HE IS ABLE TO GET HIS BREATHING BACK TO A SLOWER RATE AFTER RESTING A FEW MINUTES. BREAKFAST IS PROVIDED.
[2021-03-11 13:25] VITALS: BP 115/61; PULSE 110; TEMP 97.9
--- NOTE | 2021-03-11 13:29 | NUR ---
PATIENT RESTING IN BED. DAUGHTER AT BEDSIDE. HE EATS LUNCH WITHOUT DIFF. HE DENIES BEING SHORT OF BREATH OR PAIN AT THIS TIME.
[2021-03-11 17:13] VITALS: BP 117/71; PULSE 109; TEMP 98
--- NOTE | 2021-03-11 19:03 | NUR ---
Received report from Angelika. Patient awake in bed. He is about to put on his Trilogy. Call light within reach.
[2021-03-11 19:10] VITALS: BP 107/65; PULSE 106; TEMP 98
--- NOTE | 2021-03-11 19:12 | NUR ---
ASSISTANCE PROVIDED TO PUT ON TRILLOGY. HE DENIES FURTHER NEEDS OR REQUESTS AT THIS TIME.
[2021-03-12] VITALS (7 sets, daily range): BP systolic 99–130; BP diastolic 60–77; PULSE 80–105; TEMP 97.6–98.5
[2021-03-12 06:19] LABS: MEAN CELL VOLUME 89 fl (80.0-100.0); MEAN CORPUSCULAR HGB CONC 30 g/dl (33.0-37.0); MEAN PLATELET VOLUME 10.7 fl (7.4-10.4); PLATELET COUNT 240 K/mm3 (130-400); RED BLOOD COUNT 3.54 M/mm3 (4.20-5.60); REDCELL DISTRIBUTION WIDTH-CV 26.7 % (11.5-14.5)
[2021-03-12 06:22] LABS: HEMATOCRIT 31.6 % (42.0-52.0); HEMOGLOBIN 9.4 g/dl (13.5-18.0); MEAN CORPUSCULAR HEMOGLOBIN 27 pg (27.0-31.0)
[2021-03-12 06:29] LABS: C-REACTIVE PROTEIN 1.5 mg/dL (0.0-0.9); CALCIUM 7.9 mg/dL (8.4-10.2); CREATININE, serum 0.57 (0.66-1.25)
--- NOTE | 2021-03-12 06:59 | NUR ---
Patient had uneventful night. He is not anxious. He states his nose doesn't feel clogged anymore. His SPO2 was at high 90's. Chrisn ongoing.
--- NOTE | 2021-03-12 07:15 | NUR ---
PATIENT ASSESSMENT COMPLETED. BREAKFAST HAS BEEN PROVIDED AND HE REQUESTS HIS MEDICATIONS AT THIS TIME ALSO. O2 AT 5L VIA HIGH FLOW CANNULA. DENIES OTHER NEEDS OR REQUESTS AT THIS TIME.
[2021-03-12 14:44] LABS: TB GOLD INTERPRETATION Indeterminate (Negative)
--- NOTE | 2021-03-12 18:16 | NUR ---
PATIENT RESTING IN BED. NO NEEDS AT THIS TIME. HAS EATTEN ALL SUPPER. AT BEDSIDE.
--- NOTE | 2021-03-12 20:39 | NUR ---
Sitting up in bed, respiratory giving breathing treatment tolerating well, VS stable, Telemetry in use w/o issue, denies pain, SHOB noted on exertion, updated on plan of care, verbalized understanding.
[2021-03-13 04:20] VITALS: BP 127/74; PULSE 94; TEMP 97.6
[2021-03-13 06:16] LABS: MEAN CELL VOLUME 91 fl (80.0-100.0); MEAN CORPUSCULAR HGB CONC 29 g/dl (33.0-37.0); MEAN PLATELET VOLUME 10.1 fl (7.4-10.4); PLATELET COUNT 205 K/mm3 (130-400); RED BLOOD COUNT 3.27 M/mm3 (4.20-5.60); REDCELL DISTRIBUTION WIDTH-CV 26.7 % (11.5-14.5)
[2021-03-13 06:18] LABS: HEMATOCRIT 29.7 % (42.0-52.0); HEMOGLOBIN 8.5 g/dl (13.5-18.0); MEAN CORPUSCULAR HEMOGLOBIN 26 pg (27.0-31.0)
[2021-03-13 06:32] LABS: CALCIUM 7.1 mg/dL (8.4-10.2); CREATININE, serum 0.5 (0.66-1.25); POTASSIUM 3.6 mmol/L (3.4-5.0)
--- NOTE | 2021-03-13 07:00 | NUR ---
Report received from ALE Dominguez. Pt in bed resting with RT in room providing breathing treatment. Will continue to monitor.
[2021-03-13 08:01] VITALS: BP 118/70; PULSE 108; TEMP 98.1
--- NOTE | 2021-03-13 08:42 | NUR ---
Assessment charted. PICC to VANESA with good blood return and flushes well, extensive bruising to R arm from placement. L shoulder pain, aching from joint he says, tylenol provided per request. States he feels short of breath, 02 at 6L HFNC and 90 %. Arms are a bit swollen but no other edema noted. Resting in bed, moving around in bed well, will continue to monitor.
--- NOTE | 2021-03-13 09:46 | NUR ---
Called Infection Control nurse Mirella, She will review chart with ID and call back regarding recommendations.
--- NOTE | 2021-03-13 10:16 | NUR ---
Met with patient and his at bedside today. He is looking forward to going home with home health services, anticipating being on antibiotics foro a period of time. I encouraged them to think about ways for him to conserve energy that will allow him to use the energy he has for things he wants to do. His daughter should be home with him as well for a period of time to help with the adjustment home. Pt has completed a DPOA-HC and will refer to that for decisions regarding his health care. These decisions will be determined by family members noted if he is unable to make the decision.
[2021-03-13 12:08] VITALS: BP 121/62; PULSE 106; TEMP 98.1
--- NOTE | 2021-03-13 13:15 | NUR ---
CONTACTED [facility]IA [facility] ABOUT DOWNLOADING CARD ON [facility]. THEY DO NOT HAVE AN RT AVAILABLE UNTIL SATURDAY. GASTON AGUILERA AND GEMMA DANIELLE NOTIFIED
--- NOTE | 2021-03-13 14:38 | NUR ---
Multi Care Technician met with patient to review PT/OT recommendation for SNF/Post Acute Rehab. Patient states he went to an LTACH after his last admission and had a terrible experience. Patient states the only place he is going upon discharge is home. SW reviewed the difference between LTACH and post acute rehab as well as options like local SNFs and IPR. Patient appreciated the offer, but states he will be going home with continued Home Health services from [facility]. CHRIS contacted Carol at [facility] who advised they will continue services upon discharge. Discharge Plan: Home with [facility]
[2021-03-13 16:03] VITALS: BP 129/69; PULSE 106; TEMP 98.5
--- NOTE | 2021-03-13 17:04 | NUR ---
Pt has done well overshift today. Very happy to be off isolation per Dr. Carr. PRN tyelonol provided per request for L shoulder pain for rotator cuff issues. Hubert needs, will give bedside shift erport to nightshift nurse who will resume care.
[2021-03-13 18:51] VITALS: BP 118/73; PULSE 95; TEMP 98
--- NOTE | 2021-03-13 19:26 | NUR ---
Awake, alert, oriented x 4, able to make needs known, denies c/o at this time, requested Ativan for bedtime due to increased anxiety associated with SHOB, continues to wear pulse oximetry at all times due to anxiety, O2@5L per nc, shob noted on exertion, Bilaeteral arms swollen with +1 edema, VS stable, continent of bowel and bladder, tolerating IV abt w/o issue. Will continue to monitor.
[2021-03-13 23:36] VITALS: BP 124/78; PULSE 94; TEMP 98
[2021-03-14 03:51] VITALS: BP 114/67; PULSE 85; TEMP 98.2
--- NOTE | 2021-03-14 06:02 | NUR ---
Resting quietly, no c/o at this time, tolerating abt therapy w/o issue, will continue to monitor.
[2021-03-14 06:13] LABS: TOXOPLASMA AB, IGG <3.0 IU/mL (0.0-7.1); TOXOPLASMA AB, IGM <3.0 AU/mL (0.0-7.9); TOXOPLASMA IGG VALUE Negative (Negative); TOXOPLASMA IGM VALUE Negative (Negative)
[2021-03-14 07:35] LABS: MEAN CELL VOLUME 90 fl (80.0-100.0); MEAN CORPUSCULAR HGB CONC 29 g/dl (33.0-37.0); MEAN PLATELET VOLUME 10.5 fl (7.4-10.4); PLATELET COUNT 250 K/mm3 (130-400); RED BLOOD COUNT 3.72 M/mm3 (4.20-5.60); REDCELL DISTRIBUTION WIDTH-CV 26.5 % (11.5-14.5)
[2021-03-14 07:40] LABS: HEMATOCRIT 33.6 % (42.0-52.0); HEMOGLOBIN 9.8 g/dl (13.5-18.0); MEAN CORPUSCULAR HEMOGLOBIN 26 pg (27.0-31.0)
[2021-03-14 07:43] LABS: CALCIUM 7.8 mg/dL (8.4-10.2); CREATININE, serum 0.53 (0.66-1.25); POTASSIUM 3.7 mmol/L (3.4-5.0)
[2021-03-14 07:59] VITALS: BP 118/60; PULSE 108; TEMP 97.9
[2021-03-14 08:14] LABS: BAND 10 % (0-10); EOSINOPHIL 3 % (0-4); LYMPHOCYTE 19 % (20.0-51.0); METAMYELOCYTE 2 % (0-0); NEUTROPHILS 58 % (42.0-75.2); NUCLEATED RED BLOOD CELL 1 (0-6); PLATELET ESTIMATE NORMAL (NORMAL)
--- NOTE | 2021-03-14 10:36 | NUR ---
Pt is alert and oriented x3. Vital signs stable. Heart tones present and normal, no murmur noted. Lung sounds auscultated in left lung all lobes sounded clear, but diminished. Lung sounds auscultated in right lung all lobes are diminished. Abdomen is soft and non-distended. Bilateral dorsalis pedis, tibial posterior pulses palpable 2+. Left radial pulse 1+, right radial pulse 2+. Bilateral edema is noted in upper extremities with 1+ pitting. Excessive bruising on right arm where PICC line is at. No pain or tenderness at the PICC line site. No complaints at this time.
[2021-03-14 11:36] VITALS: BP 121/76; PULSE 91; TEMP 97.7
--- NOTE | 2021-03-14 13:44 | NUR ---
Administrative Office Assistant attended clinical rounds with the team and again approached the option of [facility]. Patient is still undecided but is agreeable to have a screen placed. CHRIS contacted Courtney, IPR Director to give referral. Courtney met with patient and advised they are interested in taking patient and patient is interested in IPR. CHRIS updated SHASHI Cullen.
--- NOTE | 2021-03-14 17:09 | NUR ---
PT PLEASANT, AWARE OF IPR SCREEN, RADHA ANGULO UPDATED ON PT PLAN, PT UTILIZING ACCAPELLA IN ROOM AND PRODUCING SPUTUM WITH IT, PT GETTING IV ANTIBIOTICS, PT DENIES PAIN, GETS SOB WITH ACTIVITY, ON 5L NC WITH TRILOGY AT NIGHT, NO OTHER NEEDS AT THIS TIME.
[2021-03-14 17:14] VITALS: BP 116/71; PULSE 101; TEMP 97.9
[2021-03-14 19:41] VITALS: BP 131/69; PULSE 102; TEMP 97.8
--- NOTE | 2021-03-14 19:50 | NUR ---
Patient awake in bed. Ongoing breathing treatment. He is on O2 at 5lpm via NC. Edema on BUE. Left arm is elevated with pillow. Call light within reach.
[2021-03-14 23:54] VITALS: BP 109/63; PULSE 87; TEMP 97.7
[2021-03-15 03:47] VITALS: BP 115/61; PULSE 89; TEMP 97.8
--- NOTE | 2021-03-15 06:16 | NUR ---
Patient had uneventful night. Last dose of antibiotics given. He denies pain. SPO2 at high 92%.
[2021-03-15 07:29] LABS: MEAN CELL VOLUME 90 fl (80.0-100.0); MEAN CORPUSCULAR HGB CONC 30 g/dl (33.0-37.0); MEAN PLATELET VOLUME 10.8 fl (7.4-10.4); PLATELET COUNT 234 K/mm3 (130-400); RED BLOOD COUNT 3.65 M/mm3 (4.20-5.60); REDCELL DISTRIBUTION WIDTH-CV 26.5 % (11.5-14.5)
[2021-03-15 07:32] LABS: HEMATOCRIT 32.8 % (42.0-52.0); HEMOGLOBIN 9.8 g/dl (13.5-18.0); MEAN CORPUSCULAR HEMOGLOBIN 27 pg (27.0-31.0)
[2021-03-15 07:35] VITALS: BP 114/69; PULSE 101; TEMP 97.6
[2021-03-15 07:48] LABS: CALCIUM 7.7 mg/dL (8.4-10.2); CREATININE, serum 0.47 (0.66-1.25); POTASSIUM 4.1 mmol/L (3.4-5.0)
[2021-03-15 09:31] LABS: BAND 3 % (0-10); EOSINOPHIL 3 % (0-4); METAMYELOCYTE 3 % (0-0); NEUTROPHILS 64 % (42.0-75.2); NUCLEATED RED BLOOD CELL 3 (0-6)
[2021-03-15 09:36] LABS: OVALOCYTES 1+
[2021-03-15 09:37] LABS: LYMPHOCYTE 26 % (20.0-51.0)
[2021-03-15 09:38] LABS: ANISOCYTOSIS 3+
[2021-03-15 09:39] LABS: MICROCYTOSIS 2+
[2021-03-15 09:42] LABS: HYPOCHROMIA 3+; POIKILOCYTOSIS 1+; SCHISTOCYTES 1+
[2021-03-15 09:45] LABS: PLATELET ESTIMATE NORMAL (NORMAL)
--- NOTE | 2021-03-15 10:00 | NUR ---
Pt is alert and oriented x3. Heart tones present and normal, no murmur noted. Lung sounds are clear all lobes on right side. Lung sounds are diminished on the left side all lobes. Abdomen is flat and non-distended. Pulses palpable in dorsalis pedis, posterior tibial, and radial pulses 2+ bilaterally. No complaints at this time.
[2021-03-15] MEDS ORDERED: PREDNISONE10 MG PO (11:03)
[2021-03-15] MEDS ORDERED: NICODERM C21 MG/PATC TD (11:05)
[2021-03-15] MEDS ORDERED: AMOXICILLIN 8751 TAB PO (11:05)
--- NOTE | 2021-03-15 11:12 | NUR ---
Dr. Cartagena in to see pt.
[2021-03-15 11:31] VITALS: BP 126/68; PULSE 112; TEMP 98.1
--- NOTE | 2021-03-15 11:55 | NUR ---
Patient to discharge to [facility] today. No additional needs at this time.
--- NOTE | 2021-03-15 12:21 | NUR ---
Pt to transfer to [facility] today. He reports this will help him regain some strength and be better able to go home.
[2021-03-15 12:34] VITALS: BP 126/68; PULSE 112; TEMP 98.1
--- NOTE | 2021-03-15 14:15 | NUR ---
PT TAKEN TO [facility] VIA WHEELCHAIR WITH OXYGEN TANK. PT BELONGINGS TRANSFERRED WITH PT, NO OTHER NEEDS AT THIS TIME.
[2021-03-16 08:16] LABS: PATHOLOGY DIFF REVIEW OK
[2021-03-17 15:04] LABS: HISTOPLASMA ID Negative (Negative); HISTOPLASMA MYCELIAL Negative (Negative); HISTOPLASMA YEAST Negative (Negative)
== END 2021-03-15 14:15 | DRG 871 ==
LOC: COL.ER 10:23 → MEDICAL 11:56
PROVIDERS: Internal Medicine Sleep Medicine; Physician Assistant
PROC: 02HV33Z Insertion of Infusion Device into Superior Vena Cava, Percutaneous Approach (ICD-10-PCS; principal; 2021-03-09)
DX: A41.9 Sepsis, unspecified organism (principal); J18.9 Pneumonia, unspecified organism; J96.21 Acute and chronic respiratory failure with hypoxia; J96.22 Acute and chronic respiratory failure with hypercapnia; J44.0 Chronic obstructive pulmonary disease with (acute) lower respiratory infection; J44.1 Chronic obstructive pulmonary disease with (acute) exacerbation; E87.2 Acidosis; N17.9 Acute kidney failure, unspecified; I10 Essential (primary) hypertension; E78.5 Hyperlipidemia, unspecified; E03.9 Hypothyroidism, unspecified; E87.5 Hyperkalemia; D64.9 Anemia, unspecified; G44.009 Cluster headache syndrome, unspecified, not intractable; R25.1 Tremor, unspecified; R53.81 Other malaise; F41.9 Anxiety disorder, unspecified; E88.01 Alpha-1-antitrypsin deficiency; Z20.822 Contact with and (suspected) exposure to COVID-19; Z99.81 Dependence on supplemental oxygen; Z79.82 Long term (current) use of aspirin; Z87.891 Personal history of nicotine dependence
CPT/HCPCS: 99232-AI; 99233-AI; 99239; C1751; C1892; J0456; J0696; J1650; J1956; J2543; J2920; J3370; J7030; J7050; J7512; Q9967

== ENCOUNTER 2021-03-15 14:15 | Inpatient (IN) | payer MEDICARE, BC ==
[~2021-03-15] VITALS: Ht 175.3 cm; Wt 67.2 kg
--- NOTE | 2021-03-15 14:00 | NUR ---
Received report from Yeny at Medical unit at [facility] prior to patient's arrival to [facility]. Patient arrived to [facility] at 2:15 this afternoon. Admission papers were signed and assessments completed. Patient's was by his side the entire afternoon. Patient currently resting in bed, call light in reach and bed alarm set. Reported off to night nurse.
[~2021-03-15 14:15] MED LIST changes: +AMOXICILLIN 8751 TAB PO; +NICODERM C21 MG/PATC TD; +PREDNISONE10 MG PO
--- NOTE | 2021-03-15 15:52 | NUR ---
Patient resting in bed, call light in reach, by his side and he called in his menu for tonight and tomorrow.
[2021-03-15 18:56] VITALS: BP 129/67; PULSE 98; TEMP 98
--- NOTE | 2021-03-15 19:00 | NUR ---
RECEIVED CHANGE OF SHIFT REPORT FROM DAY SHIFT NURSE. BED ALARM ON. OXYGEN PER HF NC.
--- NOTE | 2021-03-15 20:00 | NUR ---
PATIENT DENIES CHEST PAIN/SOA, CONTINUES ON OXYGEN AT 5LPM ON HIGH FLOW NC. PICC IN PLACE. BED ALARM ON WHEN IN BED.
--- NOTE | 2021-03-16 01:30 | NUR ---
PATIENT SLEEPING, DOES NOT WAKE WHEN ROOM ENTERED BY STAFF. BREATHING NONLABORED AND EVEN. CPAP IN PLACE. BED ALARM ON.
[2021-03-16 05:28] VITALS: BP 113/59; PULSE 89; TEMP 98.2
--- NOTE | 2021-03-16 06:54 | NUR ---
CHANGE OF SHIFT REPORT GIVEN TO DAY SHIFT NURSE, HARRISON AGUILERA.
--- NOTE | 2021-03-16 07:19 | NUR ---
Patient independent with eating. He is currently resting in bed, call light in reach and bed alarm set. Will continue to monitor.
--- NOTE | 2021-03-16 13:36 | NUR ---
Initial visit; Patient thanked Technician [employer] for looking in on him and offering God's blessings and to follow up while patient is hospitalized.
--- NOTE | 2021-03-16 16:11 | NUR ---
The patient in new to [facility]. Central Lab Technician met with the patient to complete intake. The patient lives [place] miles outside of [place] with his , Rukhsana, and their youngest daughter and her children. The patient is on 5L of home oxygen and has a CPAP. CPAP supplies from [employer]. The patient has a toliet riser that doubles as a bedside commode and a wheelchair. The patient's PCP is Dr. Ornelas and patient recieves medications from [facility] with no difficulties. The patient has advanced directives in the EMR. The patient has had [facility] in the past and would like to use that agency for services at discharge.
[2021-03-16 17:00] VITALS: BP 109/63; PULSE 93; TEMP 98
--- NOTE | 2021-03-16 19:30 | NUR ---
RECEIVED CHANGE OF SHIFT REPORT FROM DAY SHIFT NURSE. BED ALARM ON WHEN IN BED. O2 CONTINUES PER HI FLOW NC.
--- NOTE | 2021-03-16 20:00 | NUR ---
DENIES CHEST PAIN/SOA/NAUSEA AT THIS TIME. DENIES NUMBNESS/TINGLING TO EXTREMITIES AT THIS TIME. PATIENT DENIES ANY NEEDS OR CONCERNS.
--- NOTE | 2021-03-16 20:58 | NUR ---
Patient attended all therapies today. Tolerated diet well this shift. Denied pain this morning. Patient was unable to get a shower due to his O2 level dipping down below 90% so a bed bath was completed. Patient is still very out of breath when doing any activites, but is tolerating therapy at this time. Reported off to night nurse.
[2021-03-17 04:43] VITALS: BP 124/66; PULSE 91; TEMP 98.6
--- NOTE | 2021-03-17 06:54 | NUR ---
CHANGE OF SHIFT REPORT GIVEN TO DAY SHIFT NURSE, JUSTIN AGUILERA.
--- NOTE | 2021-03-17 10:07 | NUR ---
PT DESATS TO 87 WHEN AMBULATING TO BATHROOM THIS AM BUT QUICKLY COMES BACK UP. PT HAS EDEMA IN BUE, LUE LESS SWOLLEN THEN RIGHT, NEITHER IS PITTING. GOOD CIRCULATION AND PULSES, ENCOURAGE PT TO ELEVATE BUE ON PILLOWS.
[2021-03-17 14:34] VITALS: BP 103/57; PULSE 89; TEMP 97.7
--- NOTE | 2021-03-17 20:00 | NUR ---
PT6 RESTING IN BED WITH HOB ELEVATED. O2 5L N/C NO RESP DISTRESS. RT HERE FOR RT TX. PT DENIES PAIN. SET UP BIPAP MACHINE WITH O2. SEE SHIFT ASSESSMENT.
[2021-03-18 05:27] VITALS: BP 103/66; PULSE 84; TEMP 97.7
--- NOTE | 2021-03-18 05:51 | NUR ---
PT SITTING UP IN BED. DRINKING COFFEE. NO RESP DISTRESS. PT WAS ABLE TO ASSIST IN PULLING HIMSELF UP IN BED. NO CHANGE IN STATUS. CALL LIGHT IN REACH. BED ALARM SET.
--- NOTE | 2021-03-18 10:39 | NUR ---
Patient resting in bed at this time. Patient is alert and oriented, answers questions appropriately. Patient is on humidified O2 at 5L per base. Lung bases have crackles and upper lobes are clear. Swelling is evident in BUE, bruising visible on RUE, does not appear worse. Mepilex on coccyx for excoriation. Patient denies pain or needs, call light within reach.
[2021-03-18 17:20] VITALS: BP 119/61; PULSE 92; TEMP 98.1
--- NOTE | 2021-03-18 21:00 | NUR ---
PT RESTING IN BED WITH HOB ELEVATED. O2 5L NC IS BASELINE. NO RESP DISTRESS. DENIES PAIN. USING URINAL. VOIDING W/O DIFFICULTY. CALL LIGHT IN REACH BED ALARM SET.
--- NOTE | 2021-03-18 21:30 | NUR ---
ASSISTED W/ TRILEGY BIPAP O2 5L ADDED. PT READY FOR SLEEP.
--- NOTE | 2021-03-19 00:20 | NUR ---
PT RELATES HAVING ALITTLE DIFFICULTY BREATHING. O2 SAT 89%. PT REQUEST SVN. NOTIFIED RT STAFF. PT HAS BEEN USING TRILEGY BIPAP TONIGHT W/O2 5L.
[2021-03-19 06:06] VITALS: BP 108/59; PULSE 91; TEMP 97.9
--- NOTE | 2021-03-19 08:44 | NUR ---
PATIENT CALLED OUT REQUESTING ANXIETY MEDICATION. PATIENT REPORTING THAT HE'S FEELING SOB WHICH IS MAKING HIM FEEL VERY ANXIOUS. PATIENT O2 SAT WNL. 02 AT 5L HIGH FLOW NASAL CANNULA. PATIENT GIVEN PRN ATIVAN. PATIENT DENYING COMPLAINTS OF PAIN AT THIS TIME. PATIENT SITTING UP IN BEDSIDE CHAIR. CALL LIGHT WITHIN REACH. PATIENT DENIES ADDIDTIONAL NEEDS AT THIS TIME.
--- NOTE | 2021-03-19 10:02 | NUR ---
PATIENT MORNING SHIFT ASSESSMENT COMPLETE. AM MEDICATIONS ADMINISTERED. PRESENT AT THE BEDSIDE. CALL LIGHT IN REACH.
[2021-03-19 16:48] VITALS: BP 103/60; PULSE 88; TEMP 98
--- NOTE | 2021-03-19 18:31 | NUR ---
PATIENT RESTING IN BED WATCHING TV. CALL LIGHT IN REACH. BED ALARM ON. WILL REPORT OFF TO ONCOMING NURSE.
--- NOTE | 2021-03-19 19:30 | NUR ---
PT SLEEPING. NO RESP DISTRESS.
--- NOTE | 2021-03-19 21:30 | NUR ---
PT AWAKE. SITTING UP IN BED. O2 2LNC. NO RESP DISTRESS. SET UP TRIEGY W/O2 FOR THE NIGHT. REQUESTED ANTIVAN. SEE MAR. READY FOR SLEEP.
--- NOTE | 2021-03-20 05:46 | NUR ---
SEE MAR FOR ATIVAN GIVEN FOR ANXIETY PER REQUEST. TRIEGY OFF. O2 NC 5L NC. PT REPORTS HE SLEPT WELL.
[2021-03-20 05:47] VITALS: BP 109/61; PULSE 79; TEMP 98.1
[2021-03-20 07:49] LABS: MEAN CELL VOLUME 90 fl (80.0-100.0); MEAN CORPUSCULAR HGB CONC 29 g/dl (33.0-37.0); MEAN PLATELET VOLUME 10.1 fl (7.4-10.4); PLATELET COUNT 318 K/mm3 (130-400); RED BLOOD COUNT 3.68 M/mm3 (4.20-5.60); REDCELL DISTRIBUTION WIDTH-CV 25.3 % (11.5-14.5)
[2021-03-20 07:52] LABS: HEMATOCRIT 33.2 % (42.0-52.0); HEMOGLOBIN 9.6 g/dl (13.5-18.0); MEAN CORPUSCULAR HEMOGLOBIN 26 pg (27.0-31.0)
[2021-03-20 08:08] LABS: CALCIUM 8.3 mg/dL (8.4-10.2); CREATININE, serum 0.47 (0.66-1.25); MAGNESIUM 2.1 mg/dL (1.6-2.3)
[2021-03-20 08:22] LABS: BAND 12 % (0-10); EOSINOPHIL 1 % (0-4); LYMPHOCYTE 20 % (20.0-51.0); NEUTROPHILS 57 % (42.0-75.2); OVALOCYTES 2+; PLATELET ESTIMATE NORMAL (NORMAL); TEAR DROP CELLS 1+
[2021-03-20 08:23] LABS: MYELOCYTE 1 % (0-0); NUCLEATED RED BLOOD CELL 2 (0-6); SCHISTOCYTES 1+
[2021-03-20 08:31] LABS: METAMYELOCYTE 2 % (0-0)
--- NOTE | 2021-03-20 09:49 | NUR ---
PT DENIED PAIN AT SHIFT ASSESSMENT THIS AM. AFTER FIRST SESSION WITH PYSCIAL THERAPY PT REPORTED "CLUSTER" HEADACHE AND APAP GIVEN. PT REPORTED HEADACHE SUBSIDED SHORTLY AFTER. WAS CONCERNED THAT OXYGEN WAS NOT CONNECTED CORRECTLY BECAUSE SATS WOULD NOT GO ABOVE 88 OR 89 AFTER SITTING FOR SOMETIME. PT DENIED SOB THOUGH, WILL CONTINUE TO MONITOR.
--- NOTE | 2021-03-20 10:06 | NUR ---
Follow-up visit; Patient thanked Agricultural Crop Farm Manager for looking in on him today and offering God's blessings and spiritual care.
--- NOTE | 2021-03-20 13:48 | NUR ---
Admission QIM scores were reviewed by the team. Code of 5 chosen for eating was determined by team discussion to be the most usual performance for this patient during the assessment period. Code of 5 chosen for oral hygiene was determined by team discussion to be the most usual performance before interventions for this patient during the assessment period. Code of 4 chosen for toilet hygiene was determined by team discussion to be the most usual performance for this patient during the assessment period. Code of 6 chosen for rolling left to right was determined by team discussion to be the most usual performance for this patient during the assessment period. Code of 6 chosen for sit to lying was determined by team discussion to be the most usual performance for this patient during the assessment period. Code of 6 chosen for lying to sitting on side of bed was determined by team discussion to be the most usual performance for this patient during the assessment period. Code of 3 for sit to stand was determined by team discussion to be the most usual performance for this patient during the assessment period. Code of 3 for chair/bed to chair transfers was determined by team discussion to be the most usual performance for this patient during the assessment period.--Courtney Maldonado,
--- NOTE | 2021-03-20 14:01 | NUR ---
AIDEN Valdez Director staffed with this Metal Finisher to discuss having a family meeting for the patient on 03/22. SW contacted the patient's , Rukhsana. She was agreeable to a family meeting on 03/22 at 1330. CHRIS collaborated the above information with AIDEN Valdez Director.
[2021-03-20 17:09] VITALS: BP 108/59; PULSE 97; TEMP 98.1
[2021-03-20 17:14] VITALS: BP 108/59; PULSE 98; TEMP 97.5
--- NOTE | 2021-03-20 18:46 | NUR ---
NEW ALLEVYN DRSG PLACED TO BUTTOCKS THIS AM FOR S2 TO LEFT BUTTOCKS. NO OTHER COMPLAINTS AFTER PRN APAP FOR HEADACHE THIS AM.
[2021-03-21 03:46] VITALS: BP 110/60; PULSE 73; TEMP 97
--- NOTE | 2021-03-21 06:35 | NUR ---
PATIENT REPORTED HE RESTED WELL THROUGHOUT THE NIGHT. NO NEW ISSUES NOTED OR REPORTED.
--- NOTE | 2021-03-21 07:16 | NUR ---
Patient resting in bed, call light in reach and bed alarm set. Will continue to monitor.
--- NOTE | 2021-03-21 11:07 | NUR ---
Patient at Group Therapy at this time.
--- NOTE | 2021-03-21 13:43 | NUR ---
Courtney, IPR director staffed with this Wood Bucker regarding the family meeting time. It needs to be changed to 1300 vs 1330 on Saturday, 03/22. SW met with the patient's , Rukhsana and she was in agreeance. CHRIS collaborated the above information with Courtney.
--- NOTE | 2021-03-21 16:51 | NUR ---
Patient resting in bed, with by his side. He continues on 5 L nasal cannula due to COPD. Patient attended all therapies today. Tolerating diet well this shift. He reported a headache this afternoon and was given prn tylenol. VSS. Will continue to monitor.
[2021-03-21 17:47] VITALS: BP 122/62; PULSE 94; TEMP 97.7
--- NOTE | 2021-03-21 19:15 | NUR ---
CHANGE OF SHIFT REPORT RECEIVED FROM DAY SHIFT NURSE. BED ALARM ON.
--- NOTE | 2021-03-21 19:43 | NUR ---
PATIENT REQUESTED FOR RT TX TO BE GIVEN, INFORMED RT OF PATIENT REQUEST.
[2021-03-22 04:52] VITALS: BP 124/59; PULSE 80; TEMP 97.7
--- NOTE | 2021-03-22 06:58 | NUR ---
CHANGE OF SHIFT REPORT GIVEN TO DAY SHIFT NURSE, HARRISON AGUILERA.
--- NOTE | 2021-03-22 07:21 | NUR ---
Patient independent with eating. Patient denies questions at this time. Lying in bed, call light in reach and bed alarm set. Will continue to monitor.
--- NOTE | 2021-03-22 11:13 | NUR ---
Patient working with OT at this time.
--- NOTE | 2021-03-22 13:26 | NUR ---
Geothermal Powerplant Mechanic Helper attended family meeting for the patient. The patient , Rukhsana was present and daughter, Adri was on speaker phone. Also present were Courtney, IPR Director, PT/OT/ST staff and ST student. Courtney began the meeting by stating it's purpose. PT/OT/ST staff discussed the patient progress. The team has set a tentative discharge date for Saturday, 03/24 with home health. The patient used [facility] in the past and would like to use the once again. The family was in agreeance. After the family meeting CHRIS met with the patient, Rukhsana, and Adri on speaker phone to present the Team Conference Note. The team recommending a 4WW. Medicare only covers FWW. The family would like to take a day to look for a 4WW online or in the community. Geothermal Powerplant Mechanic Helper ask permission to contact the [facility] to inquire about a 4WW. The were agreeable. CHRIS contacted [facility] regarding a 4WW and left message for Natasha. CHRIS faxed referral to [facility].
[2021-03-22 14:52] VITALS: BP 119/72; PULSE 100; TEMP 97.5
--- NOTE | 2021-03-22 19:02 | NUR ---
RECEIVED CHANGE OF SHIFT REPORT FROM DAY SHIFT NURSE. PATIENT UP IN ROOM PER SELF WITH NO REPORT CONCERNS OR PROBLEMS.
--- NOTE | 2021-03-22 19:04 | NUR ---
Patient attended all therapies this shift. He was made modified independent in his room with his 4 wheeled walker. Patient continues on 5 L oxygen via NC and he wears a pulse ox on his finger at all times, to make sure his O2 SATS do not go too low. Patient will be discharging on Saturday. His appointments with PCP and Pulmonology were made. Patient currently resting in bed, call light in reach and walker in close proximity to patient for safe transfers. Reported off to night nurse.
[2021-03-22 19:34] VITALS: BP 102/56; PULSE 92
--- NOTE | 2021-03-22 20:00 | NUR ---
PATIENT CONTINUES TO BE UP IN ROOM AD RAJIV WITH NO REPORTED PROBLEMS OR CONCERNS AT THIS TIME.
[2021-03-23 04:08] VITALS: BP 116/61; PULSE 85; TEMP 97.6
--- NOTE | 2021-03-23 06:45 | NUR ---
CHANGE OF SHIFT REPORT GIVEN TO DAY SHIFT NURSE, JUSTIN AGUILERA.
--- NOTE | 2021-03-23 09:10 | NUR ---
PT DENIED ANY PAIN THIS MORNING. DID C/O ANXIETY ABOUT SHOWER, WAS NOT SPECIFIC ABOUT WHY. DISCUSSED TALKING ABOUT COPING MECHANISMS LATER TODAY. PT WAS READY AND IN CHAIR THIS AM FOR THERAPY.
--- NOTE | 2021-03-23 14:43 | NUR ---
Director Web was contacted by [facility] about the 4WW and they did have a one available. SW met with the patient and his , Rukhsana regarding the 4WW and they already found one. SW contacted [facility] and they can accept the patient for hh services at discharge.
[2021-03-23 16:37] VITALS: BP 114/60; PULSE 90; TEMP 98.8
[2021-03-23] MEDS ORDERED: PREDNISONE10 MG PO (20:07)
[2021-03-23] MEDS ORDERED: ATIVAN 0.50.5 MG/TAB PO (20:08)
--- NOTE | 2021-03-23 20:30 | NUR ---
PT RESTING IN BED. HOB ELEVATED. O2 NC 5L. NO DISTRESS. MOD I IN ROOM WITH WALKER. ENC PT TO CALL FOR ASSIST IF HE NEEDED ASSIST. CALL LIT IN REACH.
[2021-03-24 05:09] VITALS: BP 103/60; PULSE 90; TEMP 97.4
--- NOTE | 2021-03-24 09:37 | NUR ---
Patient resting in bed, call light in reach and is modified independent in room with 4 wheeled walker. Patient denies any questions at this time.
--- NOTE | 2021-03-24 13:28 | NUR ---
Patient Health Summary, Discharge Summary, and Home Meds printed and reviewed with patient. Stressed importance of follow up appointments. Belongings gathered by ALE/Cyndee and patient's . Patient transported via wheelchair by ALE/Cyndee and seatbelted for ride home with . Patient and denied questions.
--- NOTE | 2021-03-24 16:04 | NUR ---
The patient discharged home today, 03/24 with [facility] PT/OT/Nursing. SW faxed discharge orders to [facility]. There are no additional needs.
== END 2021-03-24 12:00 | disposition home health service (06) | DRG 193 ==
PROVIDERS: ADMIT Internal Medicine
DX: J18.9 Pneumonia, unspecified organism (principal); J96.22 Acute and chronic respiratory failure with hypercapnia; J96.21 Acute and chronic respiratory failure with hypoxia; J44.0 Chronic obstructive pulmonary disease with (acute) lower respiratory infection; E03.9 Hypothyroidism, unspecified; R00.0 Tachycardia, unspecified; I10 Essential (primary) hypertension; D64.9 Anemia, unspecified; G44.009 Cluster headache syndrome, unspecified, not intractable; E87.5 Hyperkalemia; E78.5 Hyperlipidemia, unspecified; R25.1 Tremor, unspecified; S49.92XA Unspecified injury of left shoulder and upper arm, initial encounter; Y93.B9 Activity, other involving muscle strengthening exercises; Y92.239 Unspecified place in hospital as the place of occurrence of the external cause; R53.81 Other malaise; R26.9 Unspecified abnormalities of gait and mobility; Z79.82 Long term (current) use of aspirin; Z87.891 Personal history of nicotine dependence
CPT/HCPCS: 99222-AI; 99231-AI; 99232-AI; 99239; A9284; J1650; J7512

== ENCOUNTER → 2022-09-05 | Outpatient (CLI) | payer MEDICARE, BC ==
[~2022-09-05] MED LIST changes: +ATIVAN 0.50.5 MG/TAB PO
== END ==
LOC: COL.RAD 09:52
DX: Z12.2 Encounter for screening for malignant neoplasm of respiratory organs (principal); Z87.891 Personal history of nicotine dependence; J43.9 Emphysema, unspecified